=== PATIENT | male | born 1995 | race Caucasian/White ===

== ENCOUNTER 2017-02-10 18:06 | Emergency (ER) | payer OTHER ==
[2017-02-10 18:13] VITALS: BP 136/68; PULSE 94; RESP 20; TEMP 98.1
--- NOTE | 2017-02-10 18:53 | ED ---
Wound/Laceration HPI - General Chief Complaint: Wound/Laceration Stated Complaint: laceration left thumb Time Seen by Provider: 02/10/17 18:26 Source: patient, RN notes reviewed, old records reviewed Mode of arrival: ambulatory Limitations: no limitations - History of Present Illness Initial Comments: This is a 21-year-old male chief complaint laceration over his right thumb. Patient ports that he was cutting potatoes for his dinner place his thumb on a knife. Patient reports that his tetanus is up-to-date. He states that he has full range of motion. Patient reports tetanus is up to date. - Related Data Home Medications Medication Instructions Recorded Confirmed No Known Home Medications [No 02/10/17 02/10/17 Known Home Medications] Allergies Allergy/AdvReac Type Severity Reaction Status Date / Time No Known Allergies Allergy Verified 02/10/17 18:36 Review of Systems ROS Statement: Those systems with pertinent positive or pertinent negative responses have been documented in the HPI. ROS Other: All systems not noted in ROS Statement are negative. 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 migraine CARRILLO History of Any Multi-Drug Resistant Organisms: MRSA Date of last positivie culture/infection: 2011 MDRO Source:: BASE TAILBONE Additional Past Surgical History / Comment(s): REPAIR DOG BITES X2 - FACE, THEN RT EYE. Incision and drianage of MRSA abcess on coccyx Past Anesthesia/Blood Transfusion Reactions: No Reported Reaction Past Psychological History: ADD/ADHD, Bipolar Additional Psychological History / Comment(s): [place] refused Smoking Status: Current every day smoker Past Alcohol Use History: Rare Past Drug Use History: None Reported - Past Family History Mother Family Medical History: Asthma, COPD, Diabetes Mellitus, Eye Disorder, Hyperlipidemia, Hypertension, Osteoarthritis (OA) Additional Family Medical History / Comment(s): neuropathy Father Family Medical History: GERD/Reflux, Hyperlipidemia, Hypertension, Osteoarthritis (OA) Additional Family Medical History / Comment(s): hepatits C General Exam - General Exam Comments Initial Comments: Well appearing 21 year old male, no distress. Limitations: no limitations General appearance: alert, in no apparent distress Head exam: Present: atraumatic, normocephalic, normal inspection Eye exam: Present: normal appearance, PERRL, EOMI. Absent: scleral icterus, conjunctival injection, periorbital swelling ENT exam: Present: normal exam, mucous membranes moist Neck exam: Present: normal inspection. Absent: tenderness, meningismus, lymphadenopathy Respiratory exam: Present: normal lung sounds bilaterally. Absent: respiratory distress, wheezes, rales, rhonchi, stridor Cardiovascular Exam: Present: regular rate, normal rhythm, normal heart sounds. Absent: systolic murmur, diastolic murmur, rubs, gallop, clicks GI/Abdominal exam: Present: soft, normal bowel sounds. Absent: distended, tenderness, guarding, rebound, rigid Extremities exam: Present: normal inspection, full ROM, normal capillary refill. Absent: tenderness, pedal edema, joint swelling, calf tenderness Right Forearm Wrist exam: Present: normal inspection, full ROM Hand Wrist exam: Present: normal inspection, full ROM Hand L/R Front: 1 - laceration (2 cm laceration) Neuro motor exam: Present: wrist extension intact, thumb opposition intact, thumb IP flexion intact, thumb adduction intact, fingers 2-5 abduction intact Vascular: Present: normal capillary refill Back exam: Present: normal inspection Neurological exam: Present: alert, oriented X3, CN II-XII intact Psychiatric exam: Present: normal affect, normal mood Skin exam: Present: warm, dry, intact, normal color. Absent: rash Course Vital Signs 02/10/17 18:11 Temperature 98.1 F Pulse Rate 94 Respiratory 20 Rate Blood Pressure 136/68 O2 Sat by Pulse 98 Oximetry Medical Decision Making - Medical Decision Making Patient is a 21 year old male with laceration over right thumb. Laceration is superficial, and as I attempted to do sutures, patient refused and did not want the injection. Patient given dermabond over the wound. Discussed watching for infection, and return if this occurs. Patient understands treatment plan and will comply. Disposition Clinical Impression: Thumb laceration Disposition: HOME SELF-CARE Condition: Good Instructions: Laceration (ED), Skin Adhesive Care (ED) Additional Instructions: Do not remove at the skin glue. Allow the skin glue to fall off on its own. Monitor for any signs of infection. Return to emergency department if any redness swelling or drainage occurs around the site. Return to emergency department if any Signs or symptoms occur. Referrals: Eliazar Burton MD [Primary Care Provider] - 1-2 days Time of Disposition: 18:52
[2017-02-10] MEDS ORDERED: TOPICAL SKIN ADHESIVE 1 EACH AMP TOPICAL ONE (18:58)
== END 2017-02-10 19:12 | disposition home or self-care (01) ==
LOC: EC 18:06
DX: S61.011A Laceration without foreign body of right thumb without damage to nail, initial encounter (principal); F17.200 Nicotine dependence, unspecified, uncomplicated; W26.0XXA Contact with knife, initial encounter; Y92.009 Unspecified place in unspecified non-institutional (private) residence as the place of occurrence of the external cause
CPT/HCPCS: 12001; 99283

== ENCOUNTER 2017-06-02 10:59 | Emergency (ER) | payer OTHER ==
[2017-06-02 11:04] VITALS: RESP 20
[2017-06-02] MEDS ORDERED: ONDANSETRON 4 MG/2 ML VIAL IVP STA (11:23)
[2017-06-02] MEDS ORDERED: SODIUM CHLORIDE 0.9% 1,000 ML IV STA ×2 (11:23)
[2017-06-02] MEDS ORDERED: ESOMEPRAZOLE 20 MG in SODIUM CHLORIDE 0.9% 50 ML IVPB STA (11:26)
[2017-06-02] MEDS ORDERED: ACETAMINOPHEN IV (For NPO) 1,000 MG in SALINE 100 100ML.BAG IVPB STA (11:26)
[2017-06-02 11:54] LABS: Basophils % (A) 0 %; CHCM 34.3; Eosinophils # (A) 0.1 k/uL (0-0.7); Eosinophils % (A) 2 %; HDW 2.49; HGB 15.9 gm/dL (13.0-17.5); Luc # (Auto) 0.11; Luc % (Auto) 2; Lymphocytes # (A) 1.2 k/uL (1.0-4.8); Lymphocytes % (A) 24 %; MCH 30.3 pg (25.0-35.0); MCHC 34.5 g/dL (31.0-37.0); MCV 87.8 fL (80.0-100.0); Monocytes # (A) 0.2 k/uL (0-1.0); Monocytes % (A) 5 %; Neutrophils # (A) 3.3 k/uL (1.3-7.7); Neutrophils % (A) 67 %; RBC 5.24 m/uL (4.30-5.90); RDW 13.6 % (11.5-15.5); WBC (Perox) 4.66
--- NOTE | 2017-06-02 11:54 | ED ---
General Adult HPI - General Chief complaint: Abdominal Pain Stated complaint: DIZZINESS, BLACK STOOL, ABDOMINAL PAIN Time Seen by Provider: 06/02/17 11:13 Source: patient, RN notes reviewed Mode of arrival: ambulatory Limitations: no limitations - History of Present Illness Initial comments: Patient 21-year-old male who presents emergency room today with a chief complaint of symptoms of nausea vomiting diarrhea times one day. Patient does admit that symptoms started yesterday. States he had several bouts of diarrhea and vomiting. States that he did take some Pepto-Bismol. States he had a formed hard bowel movement this morning. States it was a dark color. Patient does admit that he's felt weaker. Patient does admit to abdominal pain male of his abdomen. He states felt lightheaded. Patient denies any other complaints currently. Patient denies any recent fever, chills, shortness of breath, chest pain, back pain, numbness or tingling, dysuria or hematuria, constipation, headaches or visual changes, or any other complaints. - Related Data Home Medications Medication Instructions Recorded Confirmed Aspirin 325 mg PO DAILY PRN 06/02/17 06/02/17 Previous Rx's Medication Instructions Recorded Ondansetron Odt [Zofran ODT] 4 mg PO Q8HR PRN #20 tab 06/02/17 Allergies Allergy/AdvReac Type Severity Reaction Status Date / Time No Known Allergies Allergy Verified 06/02/17 11:36 Review of Systems ROS Statement: Those systems with pertinent positive or pertinent negative responses have been documented in the HPI. ROS Other: All systems not noted in ROS Statement are negative. 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 migraine CARRILLO History of Any Multi-Drug Resistant Organisms: MRSA Date of last positivie culture/infection: 2011 MDRO Source:: BASE TAILBONE Additional Past Surgical History / Comment(s): REPAIR DOG BITES X2 - FACE, THEN RT EYE. Incision and drianage of MRSA abcess on coccyx Past Anesthesia/Blood Transfusion Reactions: No Reported Reaction Past Psychological History: ADD/ADHD, Bipolar Smoking Status: Current every day smoker Past Alcohol Use History: Rare Past Drug Use History: None Reported - Past Family History Mother Family Medical History: Asthma, COPD, Diabetes Mellitus, Eye Disorder, Hyperlipidemia, Hypertension, Osteoarthritis (OA) Additional Family Medical History / Comment(s): neuropathy Father Family Medical History: GERD/Reflux, Hyperlipidemia, Hypertension, Osteoarthritis (OA) Additional Family Medical History / Comment(s): hepatits C General Exam - General Exam Comments Initial Comments: General: The patient is awake and alert, in no distress, and does not appear acutely ill. Eye: Pupils are equal, round and reactive to light, extra-ocular movements are intact. No nystagmus. There is normal conjunctiva bilaterally. No signs of icterus. Ears, nose, mouth and throat: There are moist mucous membranes and no oral lesions. Neck: The neck is supple, there is no tenderness or JVD. Cardiovascular: There is a regular rate and rhythm. No murmur, rub or gallop is appreciated. Respiratory: Lungs are clear to auscultation, respirations are non-labored, breath sounds are equal. No wheezes, stridor, rales, or rhonchi. Gastrointestinal: Soft, non-distended. Mild tenderness in both right and lower quadrants. There is no rebound or guarding present. No CVA tenderness. Bowel sounds are unremarkable. Musculoskeletal: Normal ROM, no tenderness. Strength 5/5. Sensation intact. Pulses equal bilaterally 2+. Neurological: A&O x 3. CN II-XII intact, There are no obvious motor or sensory deficits. Coordination appears grossly intact. Speech is normal. Skin: Skin is warm and dry and no rashes or lesions are noted. Psychiatric: Cooperative, appropriate mood & affect, normal judgment. Limitations: no limitations Course Vital Signs 06/02/17 06/02/17 11:00 11:43 Temperature 98.6 F 98.1 F Pulse Rate 89 80 Respiratory 20 Rate Blood Pressure 132/78 110/60 O2 Sat by Pulse 98 95 Oximetry Medical Decision Making - Medical Decision Making Patient reexamined at this time shows no signs of distress. He is that he is feeling better here in the emergency room. Patient's labs been reviewed. Was discussed with patient about doing rectal exam for guaiac test. Patient has declined. Patient does admit that he did take Pepto-Bismol. Does admit that he had a dark bowel movement this morning. Patient states feels comfortable being discharged home at this time states he will return if he notices any other dark bowel movements. Given nausea medication go home with. Advised to return for any other concerns. - Lab Data Result diagrams: 06/02/17 11:36 06/02/17 11:36 Lab Results 06/02/17 06/02/17 06/02/17 Range/Units 11:36 11:36 11:36 WBC 5.0 (3.8-10.6) k/uL RBC 5.24 (4.30-5.90) m/uL Hgb 15.9 (13.0-17.5) gm/dL Hct 46.0 (39.0-53.0) % MCV 87.8 (80.0-100.0) fL MCH 30.3 (25.0-35.0) pg MCHC 34.5 (31.0-37.0) g/dL RDW 13.6 (11.5-15.5) % Plt Count 239 (150-450) k/uL Neutrophils % 67 % Lymphocytes % 24 % Monocytes % 5 % Eosinophils % 2 % Basophils % 0 % Neutrophils # 3.3 (1.3-7.7) k/uL Lymphocytes # 1.2 (1.0-4.8) k/uL Monocytes # 0.2 (0-1.0) k/uL Eosinophils # 0.1 (0-0.7) k/uL Basophils # 0.0 (0-0.2) k/uL PT (9.0-12.0) sec INR (<1.2) APTT (22.0-30.0) sec Sodium 140 (137-145) mmol/L Potassium 3.8 (3.5-5.1) mmol/L Chloride 105 (98-107) mmol/L Carbon Dioxide 24 (22-30) mmol/L Anion Gap 11 mmol/L BUN 10 (9-20) mg/dL Creatinine 0.81 (0.66-1.25) mg/dL Est GFR (MDRD) Af Amer >60 (>60 ml/min/1.73 sqM) Est GFR (MDRD) Non-Af >60 (>60 ml/min/1.73 sqM) Glucose 86 (74-99) mg/dL Plasma Lactic Acid [place] 0.9 (0.7-2.0) mmol/L Calcium 8.9 (8.4-10.2) mg/dL Total Bilirubin 0.7 (0.2-1.3) mg/dL AST 29 (17-59) U/L ALT 46 (21-72) U/L Alkaline Phosphatase 80 (38-126) U/L Total Protein 7.3 (6.3-8.2) g/dL Albumin 4.1 (3.5-5.0) g/dL Amylase <30 L (30-110) U/L Lipase 60 (23-300) U/L Urine Color Urine Appearance (Clear) Urine pH (5.0-8.0) Ur Specific [place] (1.001-1.035) Urine Protein (Negative) Urine Glucose (UA) (Negative) Urine Ketones (Negative) Urine Blood (Negative) Urine Nitrite (Negative) Urine Bilirubin (Negative) Urine Urobilinogen (<2.0) mg/dL Ur Leukocyte Esterase (Negative) Urine RBC (0-5) /hpf Urine WBC (0-5) /hpf Ur Squamous Epith Cells (0-4) /hpf Urine Bacteria (None) /hpf Urine Mucus (None) /hpf 06/02/17 06/02/17 Range/Units 11:36 12:10 WBC (3.8-10.6) k/uL RBC (4.30-5.90) m/uL Hgb (13.0-17.5) gm/dL Hct (39.0-53.0) % MCV (80.0-100.0) fL MCH (25.0-35.0) pg MCHC (31.0-37.0) g/dL RDW (11.5-15.5) % Plt Count (150-450) k/uL Neutrophils % % Lymphocytes % % Monocytes % % Eosinophils % % Basophils % % Neutrophils # (1.3-7.7) k/uL Lymphocytes # (1.0-4.8) k/uL Monocytes # (0-1.0) k/uL Eosinophils # (0-0.7) k/uL Basophils # (0-0.2) k/uL PT 10.7 (9.0-12.0) sec INR 1.1 (<1.2) APTT 29.3 (22.0-30.0) sec Sodium (137-145) mmol/L Potassium (3.5-5.1) mmol/L Chloride (98-107) mmol/L Carbon Dioxide (22-30) mmol/L Anion Gap mmol/L BUN (9-20) mg/dL Creatinine (0.66-1.25) mg/dL Est GFR (MDRD) Af Amer (>60 ml/min/1.73 sqM) Est GFR (MDRD) Non-Af (>60 ml/min/1.73 sqM) Glucose (74-99) mg/dL Plasma Lactic Acid [place] (0.7-2.0) mmol/L Calcium (8.4-10.2) mg/dL Total Bilirubin (0.2-1.3) mg/dL AST (17-59) U/L ALT (21-72) U/L Alkaline Phosphatase (38-126) U/L Total Protein (6.3-8.2) g/dL Albumin (3.5-5.0) g/dL Amylase (30-110) U/L Lipase (23-300) U/L Urine Color Yellow Urine Appearance Clear (Clear) Urine pH 6.0 (5.0-8.0) Ur Specific [place] 1.032 (1.001-1.035) Urine Protein 1+ H (Negative) Urine Glucose (UA) Negative (Negative) Urine Ketones 1+ H (Negative) Urine Blood Negative (Negative) Urine Nitrite Negative (Negative) Urine Bilirubin 1+ H (Negative) Urine Urobilinogen 3.0 (<2.0) mg/dL Ur Leukocyte Esterase Negative (Negative) Urine RBC 3 (0-5) /hpf Urine WBC 2 (0-5) /hpf Ur Squamous Epith Cells <1 (0-4) /hpf Urine Bacteria Rare H (None) /hpf Urine Mucus Few H (None) /hpf Disposition Clinical Impression: Nausea vomiting and diarrhea Disposition: HOME SELF-CARE Condition: Good Instructions: Acute Nausea and Vomiting (ED) Additional Instructions: Please use medication as discussed. Please follow-up with family doctor in the next 2 days of symptoms have not improved. Please return to emergency room if the symptoms increase or worsen or for any other concerns. Prescriptions: Ondansetron Odt [Zofran ODT] 4 mg PO Q8HR PRN #20 tab PRN Reason: Nausea Referrals: Eliazar Burton MD [Primary Care Provider] - 1-2 days Time of Disposition: 12:44
[2017-06-02 12:02] LABS: ALT 46 U/L (21-72); AST 29 U/L (17-59); Alkaline Phosphatase 80 U/L (38-126); Amylase <30 U/L (30-110); Anion Gap 11 mmol/L; Blood Urea Nitrogen 10 mg/dL (9-20); Calcium 8.9 mg/dL (8.4-10.2); Carbon Dioxide 24 mmol/L (22-30); Chloride 105 mmol/L (98-107); Glucose 86 mg/dL (74-99); Non-African American GFR(MDRD) >60 (>60 ml/min/1.73 sqM); Potassium 3.8 mmol/L (3.5-5.1); Sodium 140 mmol/L (137-145); Total Bilirubin 0.7 mg/dL (0.2-1.3); Total Protein 7.3 g/dL (6.3-8.2)
[2017-06-02 12:11] LABS: INR 1.1 (<1.2)
[2017-06-02 12:12] LABS: Partial Thromboplastin Time 29.3 sec (22.0-30.0); Prothrombin Time 10.7 sec (9.0-12.0)
[2017-06-02 12:30] LABS: Appearance,Urine Clear (Clear); Bacteria,Urine Rare /hpf; Bilirubin,Urine 1+ (Negative); Glucose,Urine (UA) Negative (Negative); Ketones,Urine 1+ (Negative); Leukocyte Esterase,Urine Negative (Negative); Mucus,Urine Few /hpf; Nitrite,Urine Negative (Negative); Particle Count 8218; Protein,Urine 1+ (Negative); RBC,Urine 3 /hpf (0-5); Specific Gravity,Urine 1.032 (1.001-1.035); Squamous Epithelial Cell,Urine <1 /hpf (0-4); UA Billing (MACRO vs. MICRO) MICRO; WBC,Urine 2 /hpf (0-5)
[2017-06-02 13:33] VITALS: BP 104/63; PULSE 75; TEMP 98.4
== END 2017-06-02 13:38 | disposition home or self-care (01) ==
LOC: EC 10:59
DX: R11.2 Nausea with vomiting, unspecified (principal); R19.7 Diarrhea, unspecified; R10.31 Right lower quadrant pain; R10.32 Left lower quadrant pain; F17.200 Nicotine dependence, unspecified, uncomplicated
CPT/HCPCS: 36415; 80053; 82150; 83605; 83690; 85025; 85610; 85730; 81001; 99284; 96365; 96375 ×2; 96361; J2405; J0131

== ENCOUNTER 2018-06-17 12:24 | Emergency (ER) | payer OTHER ==
[2018-06-17 12:57] VITALS: BP 120/85; PULSE 78; RESP 18; TEMP 98
[2018-06-17] MEDS ORDERED: traMADol 50 MG STARTER PACK 3 TAB BTL PO STA (13:11)
[2018-06-17] MEDS ORDERED: AMOXICILLIN 500MG STARTER PACK 3 CAP BTL PO STA (13:13)
--- NOTE | 2018-06-17 13:15 | ED ---
ENT HPI - General Chief complaint: ENT Stated complaint: ear pain Time Seen by Provider: 06/17/18 12:59 Source: patient, RN notes reviewed, old records reviewed Mode of arrival: ambulatory Limitations: no limitations - History of Present Illness Initial comments: 22-year-old male presents emergency department today with chief complaint left ear pain. He reports that he's had earwax follow-up for the past 3 months. He reports he started having the pain today. Patient states that he's had no fevers or chills. He reports pain with range of motion of the jaw. Patient states that he he has a appointment scheduled in 2 weeks for removal of the wax.Patient denies any recent fever, chills, shortness of breath, chest pain, back pain, abdominal pain, nausea vomiting, numbness or tingling, dysuria or hematuria, constipation or diarrhea, headaches or visual changes, or any other current symptoms - Related Data Home Medications Medication Instructions Recorded Confirmed buPROPion HCL [Wellbutrin XL] 150 mg PO DAILY 06/17/18 06/17/18 Previous Rx's Medication Instructions Recorded Amoxic-Pot Clav 875-125Mg 1 tab PO Q12HR #20 tablet 06/17/18 [Augmentin 875-125] Ciprofloxacin Ophth Soln [Cipro 1 drops LEFT EYE Q4HR #1 bottle 06/17/18 Ophth Soln] Allergies Allergy/AdvReac Type Severity Reaction Status Date / Time No Known Allergies Allergy Verified 06/17/18 12:56 Review of Systems ROS Statement: Those systems with pertinent positive or pertinent negative responses have been documented in the HPI. ROS Other: All systems not noted in ROS Statement are negative. 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 migraine CARRILLO History of Any Multi-Drug Resistant Organisms: MRSA Date of last positivie culture/infection: 2013 MDRO Source:: BASE TAILBONE Additional Past Surgical History / Comment(s): REPAIR DOG BITES X2 - FACE, THEN RT EYE. Incision and drianage of MRSA abcess on coccyx Past Anesthesia/Blood Transfusion Reactions: No Reported Reaction Past Psychological History: ADD/ADHD, Bipolar Smoking Status: Current every day smoker Past Alcohol Use History: Rare Past Drug Use History: None Reported - Past Family History Mother Family Medical History: Asthma, COPD, Diabetes Mellitus, Eye Disorder, Hyperlipidemia, Hypertension, Osteoarthritis (OA) Additional Family Medical History / Comment(s): neuropathy Father Family Medical History: GERD/Reflux, Hyperlipidemia, Hypertension, Osteoarthritis (OA) Additional Family Medical History / Comment(s): hepatits C General Exam - General Exam Comments Initial Comments: 22-year-old male. Alert and oriented. No acute distress. Limitations: no limitations General appearance: alert, in no apparent distress Head exam: Present: atraumatic, normocephalic, normal inspection Eye exam: Present: normal appearance, PERRL, EOMI. Absent: scleral icterus, conjunctival injection, periorbital swelling ENT exam: Present: normal exam, normal oropharynx, mucous membranes moist, other (Patient has erythematous left ear canal. Unable to see TM due to cerumen impaction. Patient is very tender to touch. Would not allow me to clean the cerumen impaction.) Neck exam: Present: normal inspection. Absent: tenderness, meningismus, lymphadenopathy Respiratory exam: Present: normal lung sounds bilaterally. Absent: respiratory distress, wheezes, rales, rhonchi, stridor Cardiovascular Exam: Present: regular rate, normal rhythm, normal heart sounds. Absent: systolic murmur, diastolic murmur, rubs, gallop, clicks GI/Abdominal exam: Present: soft, normal bowel sounds. Absent: distended, tenderness, guarding, rebound, rigid Extremities exam: Present: normal inspection, full ROM, normal capillary refill. Absent: tenderness, pedal edema, joint swelling, calf tenderness Back exam: Present: normal inspection Neurological exam: Present: alert, oriented X3, CN II-XII intact Psychiatric exam: Present: normal affect, normal mood Skin exam: Present: warm, dry, intact, normal color. Absent: rash Course Vital Signs 06/17/18 12:54 Temperature 98.0 F Pulse Rate 78 Respiratory 18 Rate Blood Pressure 120/85 O2 Sat by Pulse 99 Oximetry Medical Decision Making - Medical Decision Making this is a 22-year-old male presents emergency department today with left ear pain. Onset today. He does have clogged ears with ear wax in the past 3 months. He has a appointment scheduled 2 weeks of the Wehr is removed from PCP. Patient is very tender to palpation over the tragus and here. He will not allow me to remove the cerumen at this time due to pain. He says Motrin Tylenol for pain. Again Patient one Ultram in the emergency department. Patient will be started on antibiotic drops for likely otitis externa with inflammation around the ear canal as well as Augmentin. Discussed PCP follow- up. All questions answered return parameters were discussed. Disposition Clinical Impression: Otitis externa, left, Left ear pain Disposition: HOME SELF-CARE Condition: Good Instructions: Earache (ED) Additional Instructions: Patient is to use antibiotic drops and other medications prescribed. Motrin and tylenol for pain. Recommended also using a decongestant medications Claritin-D. Return to emergency department if any alarming signs or symptoms occur. Prescriptions: Amoxic-Pot Clav 875-125Mg [Augmentin 875-125] 1 tab PO Q12HR #20 tablet Ciprofloxacin Ophth Soln [Cipro Ophth Soln] 1 drops LEFT EYE Q4HR #1 bottle Is patient prescribed a controlled substance at d/c from ED?: No Referrals: Eliazar Burton MD [Primary Care Provider] - 1-2 days Time of Disposition: 13:12
== END 2018-06-17 13:57 | disposition home or self-care (01) ==
LOC: EC 12:24
DX: H60.92 Unspecified otitis externa, left ear (principal); H61.22 Impacted cerumen, left ear; F31.9 Bipolar disorder, unspecified; F17.200 Nicotine dependence, unspecified, uncomplicated; Z79.899 Other long term (current) drug therapy; Z86.14 Personal history of Methicillin resistant Staphylococcus aureus infection
CPT/HCPCS: 99283

== ENCOUNTER 2019-02-15 17:14 | Emergency (ER) | payer OTHER ==
[2019-02-15] MEDS ORDERED: MORPHINE SULFATE 4 MG/ML SYRINGE IV STA (17:40)
[2019-02-15] MEDS ORDERED: SODIUM CHLORIDE 0.9% 2,000 ML IV STA (17:40)
[2019-02-15] MEDS ORDERED: ONDANSETRON 4 MG/2 ML VIAL IVP STA (17:40)
[2019-02-15] MEDS ORDERED: IOPAMIDOL-300 CONTRAST 30 ML VIAL (ORAL USE) PO PRN (17:40)
[2019-02-15] MEDS ORDERED: FAMOTIDINE 20 MG/2 ML VIAL IV STA (17:47)
--- NOTE | 2019-02-15 17:50 | ED ---
General Adult HPI - General Chief complaint: Nausea/Vomiting/Diarrhea Stated complaint: NVD Time Seen by Provider: 02/15/19 17:23 Source: patient, EMS, RN notes reviewed Mode of arrival: wheelchair Limitations: no limitations - History of Present Illness Initial comments: Patient is a pleasant 23-year-old male presenting to the emergency Department with nausea vomiting diarrhea. Onset of symptoms was around 6 this morning. Patient has vomited around 6 times and has had approximately 12 episodes of diarrhea. Patient states he is still nauseated however has not vomiting. Patient feels he has nothing left to vomit. Patient did not feel like he had a fever. Patient does have some fullness of his abdomen, more so left lower. No history of similar symptoms previously. - Related Data Home Medications Medication Instructions Recorded Confirmed Acetaminophen Tab [Tylenol Tab] 650 mg PO Q6H PRN 02/15/19 02/15/19 Previous Rx's Medication Instructions Recorded Ondansetron Odt [Zofran Odt] 4 mg PO Q8HR PRN #10 tab 02/15/19 Allergies Allergy/AdvReac Type Severity Reaction Status Date / Time No Known Allergies Allergy Verified 02/15/19 17:38 Review of Systems ROS Statement: Those systems with pertinent positive or pertinent negative responses have been documented in the HPI. ROS Other: All systems not noted in ROS Statement are negative. 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 migraine CARRILLO History of Any Multi-Drug Resistant Organisms: MRSA Date of last positivie culture/infection: 2013 MDRO Source:: BASE TAILBONE Additional Past Surgical History / Comment(s): REPAIR DOG BITES X2 - FACE, THEN RT EYE. Incision and drianage of MRSA abcess on coccyx Past Anesthesia/Blood Transfusion Reactions: No Reported Reaction Past Psychological History: ADD/ADHD, Bipolar Smoking Status: Current every day smoker Past Alcohol Use History: Rare Past Drug Use History: None Reported - Past Family History Mother Family Medical History: Asthma, COPD, Diabetes Mellitus, Eye Disorder, Hyperlipidemia, Hypertension, Osteoarthritis (OA) Additional Family Medical History / Comment(s): neuropathy Father Family Medical History: GERD/Reflux, Hyperlipidemia, Hypertension, Osteoarthritis (OA) Additional Family Medical History / Comment(s): hepatits C General Exam Limitations: no limitations General appearance: alert, in no apparent distress Head exam: Present: atraumatic Eye exam: Present: normal appearance, PERRL ENT exam: Present: normal oropharynx Neck exam: Present: normal inspection Respiratory exam: Present: normal lung sounds bilaterally Cardiovascular Exam: Present: regular rate, normal rhythm Expanded Peripheral pulses: 2+: Dorsalis Pedis (R), Dorsalis Pedis (L) GI/Abdominal exam: Present: soft, tenderness (Mild to moderate left lower quadrant tenderness), normal bowel sounds. Absent: distended, guarding, pulsatile mass Extremities exam: Present: normal inspection. Absent: pedal edema, calf tenderness Neurological exam: Present: alert Psychiatric exam: Present: normal affect, normal mood Skin exam: Present: normal color Course Vital Signs 02/15/19 02/15/19 02/15/19 17:25 18:12 18:23 Temperature 102.1 F H 100.6 F H Pulse Rate 115 H 106 H 108 H Respiratory 18 24 Rate Blood Pressure 132/71 115/74 116/73 O2 Sat by Pulse 97 98 Oximetry 02/15/19 19:33 Temperature 100.6 F H Pulse Rate 112 H Respiratory 18 Rate Blood Pressure 120/88 O2 Sat by Pulse 100 Oximetry Medical Decision Making - Medical Decision Making Patient reevaluated and is feeling better. Patient and family updated on results and need for follow-up. - Lab Data Result diagrams: 02/15/19 18:15 02/15/19 18:15 Lab Results 02/15/19 02/15/19 02/15/19 Range/Units 18:15 18:15 18:15 WBC 10.0 (3.8-10.6) k/uL RBC 5.26 (4.30-5.90) m/uL Hgb 15.4 (13.0-17.5) gm/dL Hct 47.2 (39.0-53.0) % MCV 89.8 (80.0-100.0) fL MCH 29.2 (25.0-35.0) pg MCHC 32.5 (31.0-37.0) g/dL RDW 13.9 (11.5-15.5) % Plt Count 218 (150-450) k/uL Neutrophils % 90 % Lymphocytes % 4 % Monocytes % 4 % Eosinophils % 1 % Basophils % 0 % Neutrophils # 9.0 H (1.3-7.7) k/uL Lymphocytes # 0.4 L (1.0-4.8) k/uL Monocytes # 0.4 (0-1.0) k/uL Eosinophils # 0.1 (0-0.7) k/uL Basophils # 0.0 (0-0.2) k/uL PT 10.2 (9.0-12.0) sec INR 0.9 (<1.2) APTT 28.8 (22.0-30.0) sec Sodium 138 (137-145) mmol/L Potassium 4.2 (3.5-5.1) mmol/L Chloride 104 (98-107) mmol/L Carbon Dioxide 22 (22-30) mmol/L Anion Gap 12 mmol/L BUN 11 (9-20) mg/dL Creatinine 0.73 (0.66-1.25) mg/dL Est GFR (CKD-EPI)AfAm >90 (>60 ml/min/1.73 sqM) Est GFR (CKD-EPI)NonAf >90 (>60 ml/min/1.73 sqM) Glucose 97 (74-99) mg/dL Calcium 8.9 (8.4-10.2) mg/dL Total Bilirubin 1.1 (0.2-1.3) mg/dL AST 19 (17-59) U/L ALT 33 (21-72) U/L Alkaline Phosphatase 68 (38-126) U/L Total Protein 6.7 (6.3-8.2) g/dL Albumin 4.0 (3.5-5.0) g/dL Amylase 37 (30-110) U/L Lipase 53 (23-300) U/L Urine Color Urine Appearance (Clear) Urine pH (5.0-8.0) Ur Specific [place] (1.001-1.035) Urine Protein (Negative) Urine Glucose (UA) (Negative) Urine Ketones (Negative) Urine Blood (Negative) Urine Nitrite (Negative) Urine Bilirubin (Negative) Urine Urobilinogen (<2.0) mg/dL Ur Leukocyte Esterase (Negative) Influenza Type A RNA (Not Detectd) Influenza Type B (PCR) (Not Detectd) 02/15/19 02/15/19 Range/Units 18:15 18:15 WBC (3.8-10.6) k/uL RBC (4.30-5.90) m/uL Hgb (13.0-17.5) gm/dL Hct (39.0-53.0) % MCV (80.0-100.0) fL MCH (25.0-35.0) pg MCHC (31.0-37.0) g/dL RDW (11.5-15.5) % Plt Count (150-450) k/uL Neutrophils % % Lymphocytes % % Monocytes % % Eosinophils % % Basophils % % Neutrophils # (1.3-7.7) k/uL Lymphocytes # (1.0-4.8) k/uL Monocytes # (0-1.0) k/uL Eosinophils # (0-0.7) k/uL Basophils # (0-0.2) k/uL PT (9.0-12.0) sec INR (<1.2) APTT (22.0-30.0) sec Sodium (137-145) mmol/L Potassium (3.5-5.1) mmol/L Chloride (98-107) mmol/L Carbon Dioxide (22-30) mmol/L Anion Gap mmol/L BUN (9-20) mg/dL Creatinine (0.66-1.25) mg/dL Est GFR (CKD-EPI)AfAm (>60 ml/min/1.73 sqM) Est GFR (CKD-EPI)NonAf (>60 ml/min/1.73 sqM) Glucose (74-99) mg/dL Calcium (8.4-10.2) mg/dL Total Bilirubin (0.2-1.3) mg/dL AST (17-59) U/L ALT (21-72) U/L Alkaline Phosphatase (38-126) U/L Total Protein (6.3-8.2) g/dL Albumin (3.5-5.0) g/dL Amylase (30-110) U/L Lipase (23-300) U/L Urine Color Yellow Urine Appearance Clear (Clear) Urine pH 7.5 (5.0-8.0) Ur Specific [place] 1.025 (1.001-1.035) Urine Protein Negative (Negative) Urine Glucose (UA) Negative (Negative) Urine Ketones Trace H (Negative) Urine Blood Negative (Negative) Urine Nitrite Negative (Negative) Urine Bilirubin Negative (Negative) Urine Urobilinogen <2.0 (<2.0) mg/dL Ur Leukocyte Esterase Negative (Negative) Influenza Type A RNA Not Detected (Not Detectd) Influenza Type B (PCR) Not Detected (Not Detectd) - Radiology Data Radiology results: report reviewed (Computed tomography scan of the abdomen pelvis shows no acute process) Disposition Clinical Impression: Vomiting, Diarrhea Disposition: HOME SELF-CARE Condition: Stable Instructions (If sedation given, give patient instructions): Acute Nausea and Vomiting (ED), Acute Diarrhea (ED) Additional Instructions: [id number] Imodium as directed as needed for diarrhea. Please follow-up with primary care physician in the next day or 2 for recheck. Return for u ncontrolled vomiting, worsening or change in symptoms, or other concerns. Prescriptions: Ondansetron Odt [Zofran Odt] 4 mg PO Q8HR PRN #10 tab PRN Reason: Nausea Is patient prescribed a controlled substance at d/c from ED?: No Referrals: Eliazar Burton MD [Primary Care Provider] - 1-2 days Time of Disposition: 19:43
[2019-02-15 18:19] VITALS: TEMP 100.6
[2019-02-15 18:35] LABS: Basophils % (A) 0 %; Eosinophils # (A) 0.1 k/uL (0-0.7); Eosinophils % (A) 1 %; HCT 47.2 % (39.0-53.0); HGB 15.4 gm/dL (13.0-17.5); Lymphocytes # (A) 0.4 k/uL (1.0-4.8); Lymphocytes % (A) 4 %; MCH 29.2 pg (25.0-35.0); MCHC 32.5 g/dL (31.0-37.0); MCV 89.8 fL (80.0-100.0); Mean Platelet Volume 7.4; Monocytes # (A) 0.4 k/uL (0-1.0); Monocytes % (A) 4 %; Neutrophils % (A) 90 %; Platelet Count 218 k/uL (150-450); RBC 5.26 m/uL (4.30-5.90); RDW 13.9 % (11.5-15.5)
[2019-02-15 18:37] LABS: Appearance,Urine Clear (Clear); Bilirubin,Urine Negative (Negative); Blood,Urine Negative (Negative); Color,Urine Yellow; Glucose,Urine (UA) Negative (Negative); Ketones,Urine Trace (Negative); Leukocyte Esterase,Urine Negative (Negative); Nitrite,Urine Negative (Negative); PH, Urine 7.5 (5.0-8.0); Protein,Urine Negative (Negative); Specific Gravity,Urine 1.025 (1.001-1.035); Urobilinogen,Urine <2.0 mg/dL (<2.0)
[2019-02-15 18:44] LABS: ALT 33 U/L (21-72); AST 19 U/L (17-59); Alkaline Phosphatase 68 U/L (38-126); Amylase 37 U/L (30-110); Anion Gap 12 mmol/L; Blood Urea Nitrogen 11 mg/dL (9-20); Calcium 8.9 mg/dL (8.4-10.2); Carbon Dioxide 22 mmol/L (22-30); Chloride 104 mmol/L (98-107); Glucose 97 mg/dL (74-99); Lipase 53 U/L (23-300); Potassium 4.2 mmol/L (3.5-5.1); Sodium 138 mmol/L (137-145); Total Bilirubin 1.1 mg/dL (0.2-1.3); Total Protein 6.7 g/dL (6.3-8.2)
[2019-02-15 18:48] LABS: INR 0.9 (<1.2); Partial Thromboplastin Time 28.8 sec (22.0-30.0); Prothrombin Time 10.2 sec (9.0-12.0)
[2019-02-15] MEDS ORDERED: ACETAMINOPHEN TAB 500 MG TAB PO STA (18:55)
--- NOTE | 2019-02-15 19:13 | CT ---
EXAMINATION TYPE: CT abdomen pelvis w con DATE OF EXAM: 02/15/2019 COMPARISON: 07/06/2016 HISTORY: Nausea, vomiting, diarrhea, and fever today. CT DLP: 1872.8 mGycm Automated exposure control for dose reduction was used. TECHNIQUE: Helical acquisition of images was performed from the lung bases through the pelvis. CONTRAST: Performed without Oral Contrast and with IV Contrast, patient injected with 100 mL of Isovue 300. FINDINGS: Lung bases are clear. There is no pleural effusion. Heart size is normal. There is no pericardial eff usion. There is some low attenuation in the liver suggestive of fatty infiltration. Spleen appears no rmal. Stomach appears normal. There is no pancreatic mass. Gallbladder appears normal. Bile ducts are not dilated. There is no adrenal mass. Kidneys show satisfactory contrast opacification. There is no hydronephrosi s. Ureters are not dilated. There is no retroperitoneal adenopathy. Bladder distends smoothly. There is no free fluid in the pelvis. There is no inguinal hernia. There is no mesenteric edema. The appendix appears normal. There is no evidence of a bowel obstructio n. There is no free air or ascites. Lumbar spine is intact. Bony pelvis is intact. IMPRESSION: FATTY INFILTRATION OF THE LIVER. NO DILATED DUCTS. NO SIGN OF ACUTE ABDOMEN AND PELVIS. NORMAL APPEND IX.
[2019-02-15 19:36] VITALS: BP 120/88; PULSE 112; RESP 18
== END 2019-02-15 20:03 | disposition home or self-care (01) ==
LOC: EC 17:14
DX: R11.2 Nausea with vomiting, unspecified (principal); R19.7 Diarrhea, unspecified; F17.200 Nicotine dependence, unspecified, uncomplicated; Z86.14 Personal history of Methicillin resistant Staphylococcus aureus infection; Z87.19 Personal history of other diseases of the digestive system; Z83.79 Family history of other diseases of the digestive system
CPT/HCPCS: 99285; 96374; 96375 ×2; 96361; 36415; 80053; 82150; 83690; 85025; 85610; 85730; 81003; 87502; 74177; J2270; J2405; Q9967

== ENCOUNTER 2019-05-21 17:58 | Emergency (ER) | payer OTHER ==
[2019-05-21 18:03] VITALS: BP 99/63; RESP 18; TEMP 97.9
--- NOTE | 2019-05-21 19:00 | ED ---
General Adult HPI - General Chief complaint: Skin/Abscess/Foreign Body Stated complaint: Abcess Time Seen by Provider: 05/21/19 18:04 Source: patient Mode of arrival: ambulatory Limitations: no limitations - History of Present Illness Initial comments: Patient is a 23-year-old male presenting to emergency Department with an abscess. Patient reports a chronic history of abscesses. Patient reports over the last few days he developed an abscess in the left abdominal fold that has begun draining since yesterday. Patient reports "yellowish white" discharge. Patient reports he attempted to squeeze is much fluid as possible. Patient reports placing a bandage over the incision site. Patient denies erythema or edema at the site of infection. Patient denies fever, nausea, vomiting. Patient denies taking medication to alleviate the symptoms. - Related Data Home Medications Medication Instructions Recorded Confirmed Acetaminophen Tab [Tylenol Tab] 650 mg PO Q6H PRN 02/15/19 02/15/19 Previous Rx's Medication Instructions Recorded Ondansetron Odt [Zofran Odt] 4 mg PO Q8HR PRN #10 tab 02/15/19 Cephalexin [Keflex] 500 mg PO Q6HR #40 cap 05/21/19 Sulfamethox-Tmp 800-160Mg [Bactrim 1 each PO Q12HR #20 tab 05/21/19 Ds] Allergies Allergy/AdvReac Type Severity Reaction Status Date / Time No Known Allergies Allergy Verified 02/15/19 17:38 Review of Systems ROS Statement: Those systems with pertinent positive or pertinent negative responses have been documented in the HPI. ROS Other: All systems not noted in ROS Statement are negative. 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 migraine CARRILLO History of Any Multi-Drug Resistant Organisms: MRSA Date of last positivie culture/infection: 2013 MDRO Source:: BASE TAILBONE Additional Past Surgical History / Comment(s): REPAIR DOG BITES X2 - FACE, THEN RT EYE. Incision and drianage of MRSA abcess on coccyx Past Anesthesia/Blood Transfusion Reactions: No Reported Reaction Past Psychological History: ADD/ADHD, Bipolar Smoking Status: Current every day smoker Past Alcohol Use History: Rare Past Drug Use History: None Reported - Past Family History Mother Family Medical History: Asthma, COPD, Diabetes Mellitus, Eye Disorder, Hyperlipidemia, Hypertension, Osteoarthritis (OA) Additional Family Medical History / Comment(s): neuropathy Father Family Medical History: GERD/Reflux, Hyperlipidemia, Hypertension, Osteoarthritis (OA) Additional Family Medical History / Comment(s): hepatits C General Exam Limitations: no limitations General appearance: alert, in no apparent distress Head exam: Present: atraumatic, normocephalic, normal inspection Eye exam: Present: normal appearance, PERRL, EOMI Pupils: Present: normal accommodation ENT exam: Present: normal exam, mucous membranes moist, normal external ear exam Neck exam: Present: normal inspection, full ROM Respiratory exam: Present: normal lung sounds bilaterally Cardiovascular Exam: Present: regular rate, normal rhythm, normal heart sounds Extremities exam: Present: normal inspection, full ROM, normal capillary refill Back exam: Present: normal inspection, full ROM Neurological exam: Present: alert, oriented X3 Psychiatric exam: Present: normal mood Skin exam: Present: warm, intact, normal color, rash (3 cm diameter draining abscess on the left abdominal fold. 2 cm diameter induration. No fluctuance.) Course Vital Signs 05/21/19 05/21/19 17:59 19:05 Temperature 97.9 F Pulse Rate 105 H 96 Respiratory 18 18 Rate Blood Pressure 99/63 O2 Sat by Pulse 97 98 Oximetry Medical Decision Making - Medical Decision Making Patient is a 23-year-old male presenting to emergency Department with an abscess. Based on history and physical examination the abscess is ready draining and no further incision and drainage is required. The lesion was not draining at the time of examination. Patient will be discharged with a 10 day course of Bactrim and Keflex. Strict return parameters were thoroughly discussed with patient who is understanding and agreeable. Case discussed with physician. Disposition Clinical Impression: Abscess Disposition: HOME SELF-CARE Condition: Stable Instructions (If sedation given, give patient instructions): Abscess (ED) Additional Instructions: Please take prescribed medication as directed. Please follow-up with primary care. Please return to emergency department symptoms worsen. Prescriptions: Sulfamethox-Tmp 800-160Mg [Bactrim Ds] 1 each PO Q12HR #20 tab Cephalexin [Keflex] 500 mg PO Q6HR #40 cap Is patient prescribed a controlled substance at d/c from ED?: No Referrals: Eliazar Burton MD [Primary Care Provider] - 1-2 days Time of Disposition: 19:00
[2019-05-21 19:06] VITALS: PULSE 96
== END 2019-05-21 19:06 | disposition home or self-care (01) ==
LOC: EC 17:58
DX: L02.211 Cutaneous abscess of abdominal wall (principal); F17.200 Nicotine dependence, unspecified, uncomplicated; Z86.14 Personal history of Methicillin resistant Staphylococcus aureus infection
CPT/HCPCS: 99282

== ENCOUNTER 2019-10-30 12:22 | Emergency (ER) | payer OTHER ==
[2019-10-30 12:30] VITALS: TEMP 97.8
--- NOTE | 2019-10-30 12:40 | ED ---
Lower Extremity Injury HPI - General Chief Complaint: Extremity Injury, Lower Stated Complaint: lt ankle injufy Time Seen by Provider: 10/30/19 12:33 Source: patient, RN notes reviewed, old records reviewed Mode of arrival: wheelchair Limitations: no limitations - History of Present Illness Initial Comments: This Patient is a 24-year-old male presents emergency department today with left ankle pain. Patient reports that he rolled his ankle while slipping on bubble wrap at work. He works at [employer]. Patient states that he has some pain over the lateral malleolus. He denies any knee pain. Denies any head or injury or any other injuries related to the accident. Patient states that he was able to bear weight but was limping. Patient reports he rolled his ankle a few weeks ago. - Related Data Home Medications Medication Instructions Recorded Confirmed Acetaminophen Tab [Tylenol Tab] 650 mg PO Q6H PRN 02/15/19 02/15/19 Previous Rx's Medication Instructions Recorded Ondansetron Odt [Zofran Odt] 4 mg PO Q8HR PRN #10 tab 02/15/19 Cephalexin [Keflex] 500 mg PO Q6HR #40 cap 05/21/19 Sulfamethox-Tmp 800-160Mg [Bactrim 1 each PO Q12HR #20 tab 05/21/19 Ds] Ibuprofen [Motrin] 600 mg PO Q8HR PRN #20 tab 10/30/19 Allergies Allergy/AdvReac Type Severity Reaction Status Date / Time No Known Allergies Allergy Verified 02/15/19 17:38 Review of Systems ROS Statement: Those systems with pertinent positive or pertinent negative responses have been documented in the HPI. ROS Other: All systems not noted in ROS Statement are negative. 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 migraine CARRILLO History of Any Multi-Drug Resistant Organisms: MRSA Date of last positivie culture/infection: 2013 MDRO Source:: BASE TAILBONE Additional Past Surgical History / Comment(s): REPAIR DOG BITES X2 - FACE, THEN RT EYE. Incision and drianage of MRSA abcess on coccyx Past Anesthesia/Blood Transfusion Reactions: No Reported Reaction Past Psychological History: ADD/ADHD, Bipolar Smoking Status: Current every day smoker Past Alcohol Use History: Rare Past Drug Use History: None Reported - Past Family History Mother Family Medical History: Asthma, COPD, Diabetes Mellitus, Eye Disorder, Hyperlipidemia, Hypertension, Osteoarthritis (OA) Additional Family Medical History / Comment(s): neuropathy Father Family Medical History: GERD/Reflux, Hyperlipidemia, Hypertension, Osteoarthritis (OA) Additional Family Medical History / Comment(s): hepatits C General Exam - General Exam Comments Initial Comments: 24-year-old male. Alert and oriented. No distress. Limitations: no limitations General appearance: alert Head exam: Present: atraumatic, normocephalic, normal inspection Eye exam: Present: normal appearance, PERRL, EOMI. Absent: scleral icterus, conjunctival injection, periorbital swelling ENT exam: Present: normal exam, mucous membranes moist Neck exam: Present: normal inspection. Absent: tenderness, meningismus, lymphadenopathy Respiratory exam: Present: normal lung sounds bilaterally. Absent: respiratory distress, wheezes, rales, rhonchi, stridor Cardiovascular Exam: Present: regular rate, normal rhythm, normal heart sounds. Absent: systolic murmur, diastolic murmur, rubs, gallop, clicks Left Lower Leg exam: Present: normal inspection, full ROM Ankle exam: Present: normal inspection, full ROM, tenderness (Patient has tenderness over the lateral malleolus and proximal fifth metatarsal. No bruising. No significant swelling at this time.) Neurovascular tendon exam: Present: no vascular compromise Gait: observed and normal Back exam: Present: normal inspection Neurological exam: Present: alert Psychiatric exam: Present: normal affect, normal mood Course Vital Signs 10/30/19 10/30/19 12:27 12:30 Temperature 97.8 F Pulse Rate 77 87 Respiratory 18 15 Rate Blood Pressure 119/81 123/65 O2 Sat by Pulse 96 100 Oximetry Medical Decision Making - Medical Decision Making 24-year-old male presents today with left ankle pain after he rolled it at work. He complains of some pain and tenderness over the lateral malleolus. The fifth metatarsal. At this time patient's ankle x-rays negative for any acute process. No fracture. Patient was given ankle air cast. Discussed Motrin Tylenol and RICE instructions. Discussed if he had persistent pain he can follow-up with orthopedics. Discussed return parameters. - Radiology Data Radiology results: report reviewed No acute fracture dislocation left ankle. Disposition Clinical Impression: Ankle sprain Disposition: HOME SELF-CARE Condition: Stable Instructions (If sedation given, give patient instructions): Ankle Sprain (ED) Additional Instructions: Is advised to rest, ice, and elevate. Patient can read Ed wrap and take anti- inflammatory medication for a period symptoms continue to persist follow-up with orthopedic. Prescriptions: Ibuprofen [Motrin] 600 mg PO Q8HR PRN #20 tab PRN Reason: Pain Is patient prescribed a controlled substance at d/c from ED?: No Referrals: Eliazar Burton MD [Primary Care Provider] - 1-2 days Allan Espinal MD [STAFF PHYSICIAN] - 1-2 days Time of Disposition: 13:07
[2019-10-30 12:41] VITALS: RESP 15
--- NOTE | 2019-10-30 12:49 | XR ---
EXAMINATION TYPE: XR ankle complete LT DATE OF EXAM: 10/30/2019 CLINICAL HISTORY: Rolling injury with pain TECHNIQUE: Frontal, lateral and oblique images of the left ankle are obtained. COMPARISON: None. FINDINGS: There is no acute fracture/dislocation evident in the left ankle. The ankle mortise appea rs within normal limits. The overlying soft tissue appears unremarkable. IMPRESSION: There is no acute fracture or dislocation in the left ankle.
[2019-10-30 13:24] VITALS: BP 121/61; PULSE 73
== END 2019-10-30 13:24 | disposition home or self-care (01) ==
LOC: EC 12:22
DX: S93.402A Sprain of unspecified ligament of left ankle, initial encounter (principal); F17.200 Nicotine dependence, unspecified, uncomplicated; Z86.14 Personal history of Methicillin resistant Staphylococcus aureus infection; W18.49XA Other slipping, tripping and stumbling without falling, initial encounter; Y93.89 Activity, other specified; Y92.69 Other specified industrial and construction area as the place of occurrence of the external cause; Y99.0 Civilian activity done for income or pay
CPT/HCPCS: 99284

== ENCOUNTER → 2019-11-05 | Outpatient (CLI) | payer OTHER ==
--- NOTE | 2019-11-05 15:06 | XR ---
EXAMINATION TYPE: XR ankle complete LT DATE OF EXAM: 11/05/2019 COMPARISON: 10/30/2019 HISTORY: Pain FINDINGS: Three views of the ankle demonstrate the ankle mortise to be intact and symmetric. The joint spaces are preserved. The osseous structures are intact. IMPRESSION: 1. No definite acute fracture or dislocation.
== END ==
LOC: RADXRMAIN 14:32
PROVIDERS: ATTEND Emergency Medicine
DX: S93.402A Sprain of unspecified ligament of left ankle, initial encounter (principal)

== ENCOUNTER 2020-01-24 21:07 | Emergency (ER) | payer OTHER ==
[2020-01-24] MEDS ORDERED: SODIUM CHLORIDE 0.9% 500 ML 500 ML IV STA (21:16)
[2020-01-24 22:01] LABS: ALT 41 U/L (4-49); AST 40 U/L (17-59); African American GFR (CKD) >90 (>60 ml/min/1.73 sqM); Albumin 4.6 g/dL (3.5-5.0); Alkaline Phosphatase 83 U/L (38-126); Anion Gap 9 mmol/L; Blood Urea Nitrogen 14 mg/dL (9-20); Calcium 9.2 mg/dL (8.4-10.2); Carbon Dioxide 21 mmol/L (22-30); Chloride 106 mmol/L (98-107); Glucose 92 mg/dL (74-99); Magnesium 2.1 mg/dL (1.6-2.3); Non-African American GFR(CKD) >90 (>60 ml/min/1.73 sqM); Sodium 136 mmol/L (137-145); Total Bilirubin 0.7 mg/dL (0.2-1.3)
[2020-01-24 22:18] LABS: Potassium 4.7 mmol/L (3.5-5.1)
[2020-01-24 22:37] LABS: Basophils # (A) 0.1 k/uL (0-0.2); Basophils % (A) 1 %; Eosinophils # (A) 0.2 k/uL (0-0.7); Eosinophils % (A) 2 %; HCT 45.6 % (39.0-53.0); HGB 15.2 gm/dL (13.0-17.5); Lymphocytes # (A) 2.3 k/uL (1.0-4.8); Lymphocytes % (A) 27 %; MCH 29.9 pg (25.0-35.0); MCHC 33.2 g/dL (31.0-37.0); Mean Platelet Volume 7.9; Monocytes # (A) 0.5 k/uL (0-1.0); Monocytes % (A) 6 %; Neutrophils # (A) 5.2 k/uL (1.3-7.7); Neutrophils % (A) 62 %; Platelet Count 260 k/uL (150-450); RBC 5.07 m/uL (4.30-5.90); RDW 13.5 % (11.5-15.5); WBC 8.3 k/uL (3.8-10.6)
--- NOTE | 2020-01-24 22:41 | ED ---
Abdominal Pain HPI - General Chief Complaint: Abdominal Pain Stated Complaint: Abd Pain,Diarrhea Time Seen by Provider: 01/24/20 21:15 Source: patient Mode of arrival: ambulatory Limitations: no limitations - History of Present Illness Initial Comments: Rock is a 24yo M with no significant PMH presents to ER today for evaluation of 2 weeks of crampy abdominal pain and diarrhea. Patient reports that over the past 2 weeks he has had episodes of loose stools which are preceded by approximately 30 minutes of abdominal cramping. Abdominal cramping resolves after having a bowel movement. Patient reports this happens approximately every 2 hours while awake. Patient reports decreased appetite but no vomiting. Patient states that early in the course he did notice some bright red blood upon wiping but that has resolved. Patient denies any recent travel, he denies any outdoor activities or suspicious food intake, denies any recent antibiotic use. Patient denies any associated fevers chills or change in bladder habits. He has no history of food ALLERGIES, irritable bowel or family history of inflammatory or irritable bowel syndrome. - Related Data Home Medications Medication Instructions Recorded Confirmed Acetaminophen Tab [Tylenol Tab] 650 mg PO Q6H PRN 02/15/19 02/15/19 Previous Rx's Medication Instructions Recorded Ondansetron Odt [Zofran Odt] 4 mg PO Q8HR PRN #10 tab 02/15/19 Cephalexin [Keflex] 500 mg PO Q6HR #40 cap 05/21/19 Sulfamethox-Tmp 800-160Mg [Bactrim 1 each PO Q12HR #20 tab 05/21/19 Ds] Ibuprofen [Motrin] 600 mg PO Q8HR PRN #20 tab 10/30/19 Dicyclomine [Bentyl] 10 mg PO QID #30 capsule 01/24/20 Allergies Allergy/AdvReac Type Severity Reaction Status Date / Time No Known Allergies Allergy Verified 02/15/19 17:38 Review of Systems ROS Statement: Those systems with pertinent positive or pertinent negative responses have been documented in the HPI. ROS Other: All systems not noted in ROS Statement are negative. 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 migraine CARRILLO History of Any Multi-Drug Resistant Organisms: MRSA Date of last positivie culture/infection: 2013 MDRO Source:: BASE TAILBONE Additional Past Surgical History / Comment(s): REPAIR DOG BITES X2 - FACE, THEN RT EYE. Incision and drianage of MRSA abcess on coccyx Past Anesthesia/Blood Transfusion Reactions: No Reported Reaction Past Psychological History: ADD/ADHD, Bipolar Smoking Status: Current every day smoker Past Alcohol Use History: Rare Past Drug Use History: None Reported - Past Family History Mother Family Medical History: Asthma, COPD, Diabetes Mellitus, Eye Disorder, Hyperlipidemia, Hypertension, Osteoarthritis (OA) Additional Family Medical History / Comment(s): neuropathy Father Family Medical History: GERD/Reflux, Hyperlipidemia, Hypertension, Osteoarthritis (OA) Additional Family Medical History / Comment(s): hepatits C General Exam - General Exam Comments Initial Comments: Physical Exam GENERAL: Patient is well-developed and well-nourished. Patient is nontoxic and well- hydrated and is in no distress. HENT: Normocephalic, Atraumatic. EYES: PERRL, EOMI PULMONARY: Unlabored respirations. No audible rales rhonchi or wheezing was noted. CARDIOVASCULAR: There is a regular rate and rhythm without any murmurs gallops or rubs. ABDOMEN: Soft and nontender with normal bowel sounds. No tenderness to palpation in all quadrants SKIN: Skin is clear with no lesions or rashes and otherwise unremarkable. : Deferred NEUROLOGIC: Patient is alert and oriented x3. Moving all extremities spontaneously MUSCULOSKELETAL: Normal extremities with adequate strength and full range of motion. No lower extremity swelling or edema. No calf tenderness. Patient has a left wrist in a cock-up splint due to pain with extension PSYCHIATRIC: Normal psychiatric evaluation. Limitations: no limitations Course Vital Signs 01/24/20 01/24/20 21:09 22:50 Temperature 98.5 F 98.3 F Pulse Rate 94 79 Respiratory 18 16 Rate Blood Pressure 122/82 122/76 O2 Sat by Pulse 98 98 Oximetry Medical Decision Making - Medical Decision Making The patient was seen and evaluated history is obtained from patient 24-year-old previously healthy male with 10 days of loose stools, crampy abdominal pain before the stools but otherwise feeling well eating and drinking appears well-hydrated no acute distress Labs were obtained and resulted with no acute skin abnormalities Patient has no risk factors for infectious diarrhea. Continued supportive care measures were discussed with the patient, patient will be prescribed Bentyl upon discharge for treatment of the crampy abdominal pain. Encouraged to continue oral rehydration therapy. Encouraged to keep a food diary to try to identify any foods that exacerbate or relieve the symptoms. Recommended follow-up with primary care and if he has persistence of symptoms discussion of possible stool studies for infectious diarrhea though he has no risk factors. All questions pertaining care were answered return parameters were discussed patient was discharged home in stable condition. - Lab Data Result diagrams: 01/24/20 21:25 01/24/20 21:25 Lab Results 01/24/20 01/24/20 Range/Units 21:25 21:25 WBC 8.3 (3.8-10.6) k/uL RBC 5.07 (4.30-5.90) m/uL Hgb 15.2 (13.0-17.5) gm/dL Hct 45.6 (39.0-53.0) % MCV 90.0 (80.0-100.0) fL MCH 29.9 (25.0-35.0) pg MCHC 33.2 (31.0-37.0) g/dL RDW 13.5 (11.5-15.5) % Plt Count 260 (150-450) k/uL Neutrophils % 62 % Lymphocytes % 27 % Monocytes % 6 % Eosinophils % 2 % Basophils % 1 % Neutrophils # 5.2 (1.3-7.7) k/uL Lymphocytes # 2.3 (1.0-4.8) k/uL Monocytes # 0.5 (0-1.0) k/uL Eosinophils # 0.2 (0-0.7) k/uL Basophils # 0.1 (0-0.2) k/uL Sodium 136 L (137-145) mmol/L Potassium 4.7 (3.5-5.1) mmol/L Chloride 106 (98-107) mmol/L Carbon Dioxide 21 L (22-30) mmol/L Anion Gap 9 mmol/L BUN 14 (9-20) mg/dL Creatinine 0.71 (0.66-1.25) mg/dL Est GFR (CKD-EPI)AfAm >90 (>60 ml/min/1.73 sqM) Est GFR (CKD-EPI)NonAf >90 (>60 ml/min/1.73 sqM) Glucose 92 (74-99) mg/dL Calcium 9.2 (8.4-10.2) mg/dL Magnesium 2.1 (1.6-2.3) mg/dL Total Bilirubin 0.7 (0.2-1.3) mg/dL AST 40 (17-59) U/L ALT 41 (4-49) U/L Alkaline Phosphatase 83 (38-126) U/L Total Protein 8.0 (6.3-8.2) g/dL Albumin 4.6 (3.5-5.0) g/dL Lipase 130 (23-300) U/L Disposition Clinical Impression: Diarrhea Disposition: HOME SELF-CARE Condition: Stable Instructions (If sedation given, give patient instructions): Acute Diarrhea (ED) Prescriptions: Dicyclomine [Bentyl] 10 mg PO QID #30 capsule Is patient prescribed a controlled substance at d/c from ED?: No Referrals: Eliazar Burton MD [Primary Care Provider] - 1-2 days
[2020-01-24 22:51] VITALS: BP 122/76; PULSE 79; RESP 16; TEMP 98.3
== END 2020-01-24 23:15 | disposition home or self-care (01) ==
LOC: EC 21:07
DX: R19.7 Diarrhea, unspecified (principal); R10.9 Unspecified abdominal pain; F17.200 Nicotine dependence, unspecified, uncomplicated
CPT/HCPCS: 36415; 80053; 83690; 83735; 85025; 96360; 99284

== ENCOUNTER → 2020-01-29 | Outpatient (CLI) | payer OTHER ==
--- NOTE | 2020-01-29 12:07 | CT ---
EXAMINATION TYPE: CT abdomen pelvis w con DATE OF EXAM: 01/29/2020 COMPARISON: CT abdomen and pelvis February 15, 2019 and older CTs HISTORY: Right sided pain with diarrhea for [address] DLP: 2539.4 mGycm, Automated Exposure Control for Dose Reduction was Utilized. CONTRAST: CT scan of the abdomen and pelvis is performed with oral and with IV Contrast, patient injected with 100 mL of Isovue 300. FINDINGS: LUNG BASES: No significant abnormality is appreciated. LIVER/GB: Liver remains isodense to hypodense relative to spleen suggesting mild diffuse fatty infilt ration. PANCREAS: No significant abnormality is seen. SPLEEN: No significant abnormality is seen. ADRENALS: No significant abnormality is seen. KIDNEYS: Symmetric cortical measuring uptake in excretion without hydronephrosis seen bilaterally. BOWEL: Oral contrast reaches level of distal transverse colon. No suspicious small or large bowel dil atation. Mild wall thickening sigmoid rectal colon. Findings could be the product of mild uncomplicat ed acute colitis versus products of poor distention. Incidental normal-appearing appendix redemonstra jm from base of cecum right upper pelvis. PROSTATE/SEMINAL VESICLES: Nonenlarged. Occasional pelvic phlebolith. LYMPH NODES: No greater than 1cm abdominal or pelvic lymph nodes are appreciated. OSSEOUS STRUCTURES: No significant abnormality is seen. OTHER: No significant additional abnormality is seen. IMPRESSION: 1. Perhaps mild distal uncomplicated acute colitis otherwise unremarkable study.
== END | disposition home or self-care (01) ==
LOC: RADCTMAIN 10:14
PROVIDERS: ATTEND Family Medicine
DX: R19.7 Diarrhea, unspecified (principal); R10.829 Rebound abdominal tenderness, unspecified site; R10.31 Right lower quadrant pain
CPT/HCPCS: 87329; 87328; 74177; Q9967

== ENCOUNTER 2020-03-06 19:12 | Emergency (ER) | payer OTHER ==
[2020-03-06 19:17] VITALS: BP 120/71; PULSE 97; RESP 18; TEMP 98
--- NOTE | 2020-03-06 20:00 | ED ---
General Adult HPI - General Chief complaint: Skin/Abscess/Foreign Body Stated complaint: Abcess Time Seen by Provider: 03/06/20 19:22 Source: patient Mode of arrival: ambulatory Limitations: no limitations - History of Present Illness Initial comments: 24 year-old male patient presents to the emergency department today for evaluation of an abscess to the left lower abdomen. Patient states for the last 2-3 days he has noticed the abscess increasing in size. Patient states he was evaluated at urgent care this morning. He did get antibiotic prescription but they did not want to perform an incision and drainage. Patient states this evening the wound started to spontaneously drain blood and pus. Patient states that he now has a hole to the area was concerned about this. He denies any fever or chills. States the area is painful and tender to touch. He does have a history of abscess with MRSA. Patient denies any recent rash, cough, shortness of breath, chest pain, abdominal pain, nausea, vomiting, diarrhea, constipation, back pain, numbness, tingling, dizziness, weakness, hematuria, dysuria, urinary urgency, urinary frequency, headache, visual changes, or any other complaints. - Related Data Home Medications Medication Instructions Recorded Confirmed Acetaminophen Tab [Tylenol Tab] 650 mg PO Q6H PRN 02/15/19 02/15/19 Previous Rx's Medication Instructions Recorded Ondansetron Odt [Zofran Odt] 4 mg PO Q8HR PRN #10 tab 02/15/19 Cephalexin [Keflex] 500 mg PO Q6HR #40 cap 05/21/19 Sulfamethox-Tmp 800-160Mg [Bactrim 1 each PO Q12HR #20 tab 05/21/19 Ds] Ibuprofen [Motrin] 600 mg PO Q8HR PRN #20 tab 10/30/19 Dicyclomine [Bentyl] 10 mg PO QID #30 capsule 01/24/20 Allergies Allergy/AdvReac Type Severity Reaction Status Date / Time No Known Allergies Allergy Verified 03/06/20 19:17 Review of Systems ROS Statement: Those systems with pertinent positive or pertinent negative responses have been documented in the HPI. ROS Other: All systems not noted in ROS Statement are negative. Past Medical History Past Medical History: GERD/Reflux, Skin Disorder Additional Past Medical History / Comment(s): migraine CARRILLO History of Any Multi-Drug Resistant Organisms: MRSA Date of last positivie culture/infection: 2017 MDRO Source:: BASE TAILBONE Additional Past Surgical History / Comment(s): REPAIR DOG BITES X2 - FACE, THEN RT EYE. Incision and drianage of MRSA abcess on coccyx Past Anesthesia/Blood Transfusion Reactions: No Reported Reaction Past Psychological History: ADD/ADHD, Bipolar Smoking Status: Current every day smoker Past Alcohol Use History: Rare Past Drug Use History: None Reported - Past Family History Mother Family Medical History: Asthma, COPD, Diabetes Mellitus, Eye Disorder, Hyperlipidemia, Hypertension, Osteoarthritis (OA) Additional Family Medical History / Comment(s): neuropathy Father Family Medical History: GERD/Reflux, Hyperlipidemia, Hypertension, Osteoarthritis (OA) Additional Family Medical History / Comment(s): hepatits C General Exam Limitations: no limitations General appearance: alert, in no apparent distress, other (This is a well- developed, well-nourished adult male patient in no acute distress. Vital signs upon presentation are temperature 98.0F, pulse 97, respirations 18, blood pressure 120/71, pulse ox 99% on room air.) Respiratory exam: Present: normal lung sounds bilaterally. Absent: respiratory distress, wheezes, rales, rhonchi, stridor Cardiovascular Exam: Present: regular rate, normal rhythm, normal heart sounds. Absent: systolic murmur, diastolic murmur, rubs, gallop, clicks GI/Abdominal exam: Present: soft, normal bowel sounds, other (There is a an open draining abscess noted to the left lower abdomen beneath the pannus. There is purulent drainage and mild surrounding erythema. ). Absent: distended, tenderness, guarding, rebound, rigid Neurological exam: Present: alert, oriented X3, CN II-XII intact Psychiatric exam: Present: normal affect, normal mood Skin exam: Present: warm, dry, intact, normal color. Absent: rash Course Vital Signs 03/06/20 03/06/20 19:13 20:04 Temperature 98 F 98 F Pulse Rate 97 97 Respiratory 18 18 Rate Blood Pressure 120/71 120/71 O2 Sat by Pulse 99 99 Oximetry Medical Decision Making - Medical Decision Making 24-year-old male patient presented to the emergency department today for evaluation of draining abscess to the left lower abdomen. Patient was started on Bactrim this morning by urgent care. He is afebrile, vital signs. Evaluation of the area does reveal an ulcer with no tracking, there is purulent drainage present. This was sent for culture. Patient is instructed to apply warm compresses several times daily. He is instructed to complete his antibiotic prescription. He is instructed to follow-up the primary care physician for recheck in 1-2 days. Return parameters were discussed in detail. He verbalizes understanding and agrees with this plan. Disposition Clinical Impression: Abscess Disposition: HOME SELF-CARE Condition: Good Instructions (If sedation given, give patient instructions): Abscess (ED) Additional Instructions: Apply warm compresses 20 minutes at a time at least 3-4 times per day. Complete antibiotic prescription in full. Follow up with your primary care physician for recheck in 1-2 days. Return to the emergency department immediately for any new, worsening, or concerning symptoms. Is patient prescribed a controlled substance at d/c from ED?: No Referrals: Eliazar Burton MD [Primary Care Provider] - 1-2 days Time of Disposition: 20:00
== END 2020-03-06 20:16 | disposition home or self-care (01) ==
LOC: EC 19:12
DX: L02.211 Cutaneous abscess of abdominal wall (principal); F17.200 Nicotine dependence, unspecified, uncomplicated; Z86.14 Personal history of Methicillin resistant Staphylococcus aureus infection
CPT/HCPCS: 87070; 87205; 99283

== ENCOUNTER → 2020-03-12 | Outpatient (CLI) | payer OTHER ==
--- NOTE | 2020-03-12 09:56 | US ---
EXAMINATION TYPE: US abdomen limited DATE OF EXAM: 03/12/2020 COMPARISON: CT January 29, 2020 CLINICAL HISTORY: L03.315 Cellulitis of perineum, L02.825. Abscess/wound left lower quadrant at waist line x 1 week, patient states he gets a lot of small boils and abscesses. LLQ at patients area of concern: superficial 0.9 x 0.5 x 2.6cm irregular complex vascular area seen In the terminal layer there is oval hypoechoic to anechoic elongated area without thick wall and havi ng vascularity could reflect a soft tissue infection or cellulitis. No thick wall drainable abscess n oted. IMPRESSION: As above.
== END | disposition home or self-care (01) ==
LOC: RADUSMAIN 09:02
PROVIDERS: ATTEND Family Medicine
DX: L03.315 Cellulitis of perineum (principal); L02.828 Furuncle of other sites
CPT/HCPCS: 76705

== ENCOUNTER 2020-08-09 20:14 | Emergency (ER) | payer OTHER ==
[2020-08-09 20:20] VITALS: RESP 18
[2020-08-09] MEDS ORDERED: SULFAMETHOX-TMP 800-160MG 1 EACH TAB PO STA (21:09)
--- NOTE | 2020-08-09 21:32 | ED ---
General Adult HPI - General Chief complaint: Skin/Abscess/Foreign Body Stated complaint: Abdominal abscess Time Seen by Provider: 08/09/20 20:32 Source: patient, RN notes reviewed, old records reviewed Mode of arrival: ambulatory Limitations: no limitations - History of Present Illness Initial comments: 24-year-old male patient presents to ED for evaluation of abdominal abscesses. Patient worse he gets these frequently and he has a appointment with the garment looper in the next couple weeks. Reports that for about 5 or 6 days she's had anterior lower abdominal abscesses. Patient reports this started draining today. He comes or deformity antibiotics. He denies any fevers or systemic symptoms. Systemic: Pt denies fatigue, fever/chills, rash. Pt denies weakness, night sweats, weight loss. Neuro: Pt denies headache, visual disturbances, syncope or pre-syncope. HEENT: Pt denies ocular discharge or irritation, otalgia, rhinorrhea, pharyngitis or notable lymphadenopathy. Cardiopulmonary: Pt denies chest pain, SOB, heart palpitations, dyspnea on exertion. Abdominal/GI: Pt denies abdominal pain, n/v/d. : Pt denies dysuria, burning w/ urination, frequency/urgency. Denies new onset urinary or bowel incontinence. MSK: Pt denies myalgia, loss of strength or function in extremities. Neuro: Pt denies new onset weakness, paresthesias. - Related Data Home Medications Medication Instructions Recorded Confirmed Acetaminophen Tab [Tylenol Tab] 650 mg PO Q6H PRN 02/15/19 02/15/19 Previous Rx's Medication Instructions Recorded Ondansetron Odt [Zofran Odt] 4 mg PO Q8HR PRN #10 tab 02/15/19 Cephalexin [Keflex] 500 mg PO Q6HR #40 cap 05/21/19 Sulfamethox-Tmp 800-160Mg [Bactrim 1 each PO Q12HR #20 tab 05/21/19 Ds] Ibuprofen [Motrin] 600 mg PO Q8HR PRN #20 tab 10/30/19 Dicyclomine [Bentyl] 10 mg PO QID #30 capsule 01/24/20 Sulfamethox-Tmp 800-160Mg [Bactrim 1 tab PO Q12HR #20 tab 08/09/20 DS 800-160 mg] Allergies Allergy/AdvReac Type Severity Reaction Status Date / Time No Known Allergies Allergy Verified 08/09/20 20:20 Review of Systems ROS Statement: Those systems with pertinent positive or pertinent negative responses have been documented in the HPI. ROS Other: All systems not noted in ROS Statement are negative. Past Medical History Past Medical History: GERD/Reflux, Skin Disorder Additional Past Medical History / Comment(s): migraine CARRILLO History of Any Multi-Drug Resistant Organisms: MRSA Date of last positivie culture/infection: 2017 MDRO Source:: BASE TAILBONE Additional Past Surgical History / Comment(s): REPAIR DOG BITES X2 - FACE, THEN RT EYE. Incision and drianage of MRSA abcess on coccyx Past Anesthesia/Blood Transfusion Reactions: No Reported Reaction Past Psychological History: ADD/ADHD, Bipolar Smoking Status: Current every day smoker Past Alcohol Use History: Rare Past Drug Use History: None Reported - Past Family History Mother Family Medical History: Asthma, COPD, Diabetes Mellitus, Eye Disorder, Hyperlipidemia, Hypertension, Osteoarthritis (OA) Additional Family Medical History / Comment(s): neuropathy Father Family Medical History: GERD/Reflux, Hyperlipidemia, Hypertension, Osteoarthritis (OA) Additional Family Medical History / Comment(s): hepatits C General Exam - General Exam Comments Initial Comments: Constitutional: NAD, AOX3, Pt has pleasant affect. HEENT: NC/AT, trachea midline, neck supple, no lymphadenopathy. Posterior pharynx non erythematous, without exudates. External ears appear normal, without discharge. Mucous membranes moist. Eyes PERRLA, EOM intact. There is no scleral icterus. No pallor noted. Cardiopulmonary: RRR, no murmurs, rubs or gallops, no JVD noted. Lungs CTAB in anterior and posterior levy. No peripheral edema. Abdominal exam: Abdomen soft and non-distended. Abdomen non-tender to palpation in all 4 quadrants. Bowel sounds active in LLQ. No hepatosplenomegaly. No ecchymosis. Neuro: CN II-XII grossly intact. No nuchal rigidity. No raccon eyes, no poon sign, no hemotympanum. No cervical spinal tenderness. MSK: Full active ROM in upper and lower extremities. Derm: Actively draining abscesses about 2 x 2 centimeter lower pannusa no cellulitic changes no streaking currently nonfluctuant. Culture obtained. Limitations: no limitations Course Vital Signs 10/03/20 20:15 Temperature 98.1 F Pulse Rate 101 H Respiratory 18 Rate Blood Pressure 131/92 O2 Sat by Pulse 98 Oximetry Medical Decision Making - Medical Decision Making 24-year-old male patient presents to ED for evaluation of abscesses. Patient does have 2 abscesses on his lower pannus region. There actively draining. Culture was obtained. No further drainage is required. Patient was placed on Bactrim and discharged with outpatient primary care follow-up and return precautions. Case discussed with Dr. Phillips. Disposition Clinical Impression: Abscess Disposition: HOME SELF-CARE Condition: Stable Instructions (If sedation given, give patient instructions): Abscess (ED) Additional Instructions: Take antibiotics as directed. Follow-up with primary care provider tomorrow. Return to ER if any worsening symptoms. Prescriptions: Sulfamethox-Tmp 800-160Mg [Bactrim DS 800-160 mg] 1 tab PO Q12HR #20 tab Is patient prescribed a controlled substance at d/c from ED?: No Referrals: Eliazar Burton MD [Primary Care Provider] - 1-2 days
[2020-08-09 22:04] VITALS: BP 125/68; PULSE 95; TEMP 98.6
== END 2020-08-09 22:00 | disposition home or self-care (01) ==
LOC: EC 20:14
DX: L02.211 Cutaneous abscess of abdominal wall (principal); F17.200 Nicotine dependence, unspecified, uncomplicated; Z86.14 Personal history of Methicillin resistant Staphylococcus aureus infection
CPT/HCPCS: 87070; 87205; 99284

== ENCOUNTER 2020-09-01 02:30 | Emergency (ER) | payer OTHER ==
[2020-09-01] MEDS ORDERED: ACETAMINOPHEN TAB 500 MG TAB PO STA (02:46)
[2020-09-01] MEDS ORDERED: guaiFENesin-DM 100-10MG/5ML 10 ML CUP PO STA (02:47)
[2020-09-01] MEDS ORDERED: SODIUM CHLORIDE 0.9% 1,000 ML IV ONE (02:47)
[2020-09-01] MEDS ORDERED: methylPREDNISolone SOD SUCCI 125 MG/2 ML VIAL IV STA (02:47)
--- NOTE | 2020-09-01 02:55 | ED ---
General Adult HPI - General Source: patient, RN notes reviewed, old records reviewed Mode of arrival: ambulatory Limitations: no limitations <Olesya Wilson - Last Filed: 09/01/20 03:27> <Nicole Collins - Last Filed: 09/01/20 05:11> - General Chief complaint: Shortness of Breath Stated complaint: SOB Time Seen by Provider: 09/01/20 02:35 - History of Present Illness Initial comments: 24-year-old male presents emergency department today with 3 days of worsening cough congestion difficulty breathing and chest pain. Patient reports that he feels that substance vomiting and diarrhea earlier in the week. 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 He does report that we could be exposed to cold 19. Patient is a smoker. He denies any recent Motrin or Tylenol use. He denies any recorded fevers at home. He reports no history of asthma or lung diseases. (Olesya Wilson) - Related Data Home Medications Medication Instructions Recorded Confirmed Acetaminophen Tab [Tylenol Tab] 650 mg PO Q6H PRN 02/15/19 02/15/19 Previous Rx's Medication Instructions Recorded Ondansetron Odt [Zofran Odt] 4 mg PO Q8HR PRN #10 tab 02/15/19 Cephalexin [Keflex] 500 mg PO Q6HR #40 cap 05/21/19 Sulfamethox-Tmp 800-160Mg [Bactrim 1 each PO Q12HR #20 tab 05/21/19 Ds] Ibuprofen [Motrin] 600 mg PO Q8HR PRN #20 tab 10/30/19 Dicyclomine [Bentyl] 10 mg PO QID #30 capsule 01/24/20 Sulfamethox-Tmp 800-160Mg [Bactrim 1 tab PO Q12HR #20 tab 08/09/20 DS 800-160 mg] Albuterol Inhaler [Ventolin Hfa 1 puff INHALATION Q4H PRN #1 09/01/20 Inhaler] inhaler Allergies Allergy/AdvReac Type Severity Reaction Status Date / Time No Known Allergies Allergy Verified 09/01/20 02:34 Review of Systems ROS Other: All systems not noted in ROS Statement are negative. <Olesya Wilson - Last Filed: 09/01/20 03:27> ROS Other: All systems not noted in ROS Statement are negative. <Nicole Collins - Last Filed: 09/01/20 05:11> ROS Statement: Those systems with pertinent positive or pertinent negative responses have been documented in the HPI. Past Medical History Past Medical History: GERD/Reflux, Skin Disorder Additional Past Medical History / Comment(s): migraine CARRILLO History of Any Multi-Drug Resistant Organisms: MRSA Date of last positivie culture/infection: 2018 MDRO Source:: [facility] Additional Past Surgical History / Comment(s): REPAIR DOG BITES X2 - FACE, THEN RT EYE. Incision and drianage of MRSA abcess on coccyx Past Anesthesia/Blood Transfusion Reactions: No Reported Reaction Past Psychological History: ADD/ADHD, Bipolar Smoking Status: Current every day smoker Past Alcohol Use History: Rare Past Drug Use History: None Reported - Past Family History Mother Family Medical History: Asthma, COPD, Diabetes Mellitus, Eye Disorder, Hyperlipidemia, Hypertension, Osteoarthritis (OA) Additional Family Medical History / Comment(s): neuropathy Father Family Medical History: GERD/Reflux, Hyperlipidemia, Hypertension, Osteoarthritis (OA) Additional Family Medical History / Comment(s): hepatits C <Olesya Wilson - Last Filed: 09/01/20 03:27> General Exam Limitations: no limitations General appearance: alert, in no apparent distress Head exam: Present: atraumatic, normocephalic, normal inspection Eye exam: Present: normal appearance, PERRL, EOMI. Absent: scleral icterus, conjunctival injection, periorbital swelling ENT exam: Present: normal exam, mucous membranes moist Neck exam: Present: normal inspection. Absent: tenderness, meningismus, lymphadenopathy Respiratory exam: Present: normal lung sounds bilaterally, wheezes (patient has wheezing throughout all lung levy.). Absent: respiratory distress, rales, rhonchi, stridor Cardiovascular Exam: Present: regular rate, normal rhythm, normal heart sounds. Absent: systolic murmur, diastolic murmur, rubs, gallop, clicks GI/Abdominal exam: Present: soft, normal bowel sounds. Absent: distended, tenderness, guarding, rebound, rigid Extremities exam: Present: normal inspection, full ROM, normal capillary refill. Absent: tenderness, pedal edema, joint swelling, calf tenderness Back exam: Present: normal inspection Neurological exam: Present: alert, oriented X3, CN II-XII intact Psychiatric exam: Present: normal affect, normal mood Skin exam: Present: warm, dry, intact, normal color. Absent: rash <Olesya Wilson - Last Filed: 09/01/20 03:27> - General Exam Comments Initial Comments: Patient is a 24-year-old male. Patient appears in moderate discomfort. Audible wheezing upon entering room. (Olesya Wilson) Course Vital Signs 09/01/20 09/01/20 09/01/20 02:30 03:49 03:50 Temperature 99 F Pulse Rate 104 H 110 H Respiratory 20 26 H 26 H Rate Blood Pressure 120/77 116/89 O2 Sat by Pulse 100 99 Oximetry 09/01/20 09/01/20 03:54 04:02 Temperature Pulse Rate 108 H 110 H Respiratory Rate Blood Pressure O2 Sat by Pulse Oximetry Medical Decision Making <Olesya Wilson - Last Filed: 09/01/20 03:27> - Lab Data Result diagrams: 09/01/20 02:50 09/01/20 02:50 <Nicole Collins - Last Filed: 09/01/20 05:11> - Medical Decision Making Patient care was signed out to Olesya MENDOZA, patient had presented with 3 days of worsening symptoms concerning for COVID 19. Labs are relatively unremar kable CRP is elevated, chest x-ray is concerning for COVID 19. These results were discussed with the patient I advised the patient that he likely does have COVID 19, advised that he needs to quarantine. Advised patient he was notified of any positive test results and he can call the hospital on Tue for test results. Past with the patient that he does have risk factors for worsening disease including obesity and cigarette smoking. Advised patient to call 911 or return to the ER immediately if he has any worsening shortness of breath. Advised the patient he needs to purchase a pulse ox to monitor his oxygen at home. 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 (Nicole Collins) - Lab Data Lab Results 09/01/20 09/01/20 09/01/20 Range/Units 02:50 02:50 02:50 WBC 8.6 (3.8-10.6) k/uL RBC 5.16 (4.30-5.90) m/uL Hgb 15.5 (13.0-17.5) gm/dL Hct 46.8 (39.0-53.0) % MCV 90.7 (80.0-100.0) fL MCH 30.1 (25.0-35.0) pg MCHC 33.1 (31.0-37.0) g/dL RDW 13.2 (11.5-15.5) % Plt Count 273 (150-450) k/uL Neutrophils % 58 % Lymphocytes % 27 % Monocytes % 7 % Eosinophils % 5 % Basophils % 2 % Neutrophils # 5.0 (1.3-7.7) k/uL Lymphocytes # 2.3 (1.0-4.8) k/uL Monocytes # 0.6 (0-1.0) k/uL Eosinophils # 0.4 (0-0.7) k/uL Basophils # 0.1 (0-0.2) k/uL PT 9.5 (9.0-12.0) sec INR 0.9 (<1.2) APTT 29.7 (22.0-30.0) sec Sodium 137 (137-145) mmol/L Potassium 4.0 (3.5-5.1) mmol/L Chloride 105 (98-107) mmol/L Carbon Dioxide 22 (22-30) mmol/L Anion Gap 10 mmol/L BUN 12 (9-20) mg/dL Creatinine 0.78 (0.66-1.25) mg/dL Est GFR (CKD-EPI)AfAm >90 (>60 ml/min/1.73 sqM) Est GFR (CKD-EPI)NonAf >90 (>60 ml/min/1.73 sqM) Glucose 111 H (74-99) mg/dL Plasma Lactic Acid Prasanna (0.7-2.0) mmol/L Calcium 9.3 (8.4-10.2) mg/dL Magnesium 2.0 (1.6-2.3) mg/dL Total Bilirubin 0.6 (0.2-1.3) mg/dL AST 46 (17-59) U/L ALT 49 (4-49) U/L Alkaline Phosphatase 85 (38-126) U/L Lactate Dehydrogenase 465 (313-618) U/L C-Reactive Protein 43.2 H (<10.0) mg/L Total Protein 8.0 (6.3-8.2) g/dL Albumin 4.4 (3.5-5.0) g/dL 09/01/20 Range/Units 02:50 WBC (3.8-10.6) k/uL RBC (4.30-5.90) m/uL Hgb (13.0-17.5) gm/dL Hct (39.0-53.0) % MCV (80.0-100.0) fL MCH (25.0-35.0) pg MCHC (31.0-37.0) g/dL RDW (11.5-15.5) % Plt Count (150-450) k/uL Neutrophils % % Lymphocytes % % Monocytes % % Eosinophils % % Basophils % % Neutrophils # (1.3-7.7) k/uL Lymphocytes # (1.0-4.8) k/uL Monocytes # (0-1.0) k/uL Eosinophils # (0-0.7) k/uL Basophils # (0-0.2) k/uL PT (9.0-12.0) sec INR (<1.2) APTT (22.0-30.0) sec Sodium (137-145) mmol/L Potassium (3.5-5.1) mmol/L Chloride (98-107) mmol/L Carbon Dioxide (22-30) mmol/L Anion Gap mmol/L BUN (9-20) mg/dL Creatinine (0.66-1.25) mg/dL Est GFR (CKD-EPI)AfAm (>60 ml/min/1.73 sqM) Est GFR (CKD-EPI)NonAf (>60 ml/min/1.73 sqM) Glucose (74-99) mg/dL Plasma Lactic Acid Prasanna 2.3 H* (0.7-2.0) mmol/L Calcium (8.4-10.2) mg/dL Magnesium (1.6-2.3) mg/dL Total Bilirubin (0.2-1.3) mg/dL AST (17-59) U/L ALT (4-49) U/L Alkaline Phosphatase (38-126) U/L Lactate Dehydrogenase (313-618) U/L C-Reactive Protein (<10.0) mg/L Total Protein (6.3-8.2) g/dL Albumin (3.5-5.0) g/dL 09/01/20 03:27 EKG shows sinus tachycardia low voltage QRS. Abnormal QRS T angleconsider primary T-wave abnormality. Ventricular rate of 104 bpm. Apparently was 150 ms. QRS duration is 68 ms. QTc is 308/405 ms. (Olesya Wilson) Disposition <Olesya Wilson - Last Filed: 09/01/20 03:27> Is patient prescribed a controlled substance at d/c from ED?: No <Nicole Collins - Last Filed: 09/01/20 05:11> Clinical Impression: Exposure to COVID-19 virus Disposition: HOME SELF-CARE Condition: Stable Additional Instructions: You were evaluated in the emergency department with symptoms concerning for infection with coronavirus COVID-19. COVID-19 is a new strain of a common viral illness. While a diagnosis of coronavirus may feel scary, most cases of coronavirus are mild and resolve on their own without hospitalization. At this time, we feel that you are safe to go home. Steps to take at home to care for yourself: Get lots of rest and stay hydrated by drinking plenty of fluids. You can take acetaminophen (eg, Tylenol) or Ibuprofen (eg Motrin) for fevers or body aches. I recommend that you obtain a home pulse oximeter is a contractor oxygen saturation, call 911 or return to the emergency department if this is below 92% Currently there is no data on any home medications benefiting COVID 19 pat ient's, some research has suggested vitamin C, zinc, vitamin D or aspirin 81 mg daily may be beneficial. You can choose to take these medications if he feel he will benefit you. If you have questions, call your primary care doctor, contact your local health department, or visit the CDCs website at cdc.gov/coronavirus Speak with your primary care doctor within 1 week to discuss a plan to follow up. How to avoid spreading the virus to others: - Stay at home, except if seeking medical care. - Cover your coughs (with a tissue or in your elbow), and avoid touching your face unnecessarily. - Wash your hands often (using soap and water for 20 seconds) to decrease your risk of infecting others. - Try to avoid close contact with others in your home, including pets. If possible, use a different bathroom, and sleep in a separate room. If you must be near others, be sure to wear a face mask and wash your hands before interacting with them. Disinfect and avoid sharing commonly used items like phones, towels, and dishes with others. - If a test was sent and is positive, your local health department will contact you. Follow their directions about when to go back to work or school. - If you or those around you are concerned about COVID-19, call your primary care doctor for advice about steps to take. Your health system may have specific locations to go for testing if you are not extremely sick. This lowers the risk that you could catch a virus or pass it on in the emergency department waiting room. If you are extremely sick and going to the emergency department, call ahead, so they can prepare for your visit. Speak to your doctor or come back to the emergency department for new or worsening symptoms, such as severe headache, confusion, chest pain, difficulty breathing, or vomiting to the point that you cannot drink fluids. Review medication inserts for side effects, and call the emergency department if you have any questions about the medications or care you received. Prescriptions: Albuterol Inhaler [Ventolin Hfa Inhaler] 1 puff INHALATION Q4H PRN #1 inhaler PRN Reason: Wheezing Referrals: Eliazar Burton MD [Primary Care Provider] - 1-2 days
[2020-09-01] MEDS ORDERED: LORazepam 2 MG/ML INJ IV STA (02:58)
[2020-09-01] MEDS ORDERED: ALBUTEROL NEBULIZED 2.5 MG/3 ML INHALATION STA (03:00)
[2020-09-01] MEDS ORDERED: BUDESONIDE 1 MG/2 ML NEBU INHALATION STA (03:22)
[2020-09-01] MEDS ORDERED: ALBUTEROL NEBULIZED 2.5 MG/3 ML INHALATION PRN (03:26)
[2020-09-01 03:42] LABS: Basophils # (A) 0.1 k/uL (0-0.2); Basophils % (A) 2 %; Eosinophils # (A) 0.4 k/uL (0-0.7); Eosinophils % (A) 5 %; HCT 46.8 % (39.0-53.0); HGB 15.5 gm/dL (13.0-17.5); Lymphocytes # (A) 2.3 k/uL (1.0-4.8); Lymphocytes % (A) 27 %; MCH 30.1 pg (25.0-35.0); MCHC 33.1 g/dL (31.0-37.0); MCV 90.7 fL (80.0-100.0); Mean Platelet Volume 7.2; Monocytes # (A) 0.6 k/uL (0-1.0); Monocytes % (A) 7 %; Neutrophils % (A) 58 %; Platelet Count 273 k/uL (150-450); RBC 5.16 m/uL (4.30-5.90); RDW 13.2 % (11.5-15.5); WBC 8.6 k/uL (3.8-10.6)
[2020-09-01 03:52] LABS: ALT 49 U/L (4-49); AST 46 U/L (17-59); African American GFR (CKD) >90 (>60 ml/min/1.73 sqM); Albumin 4.4 g/dL (3.5-5.0); Alkaline Phosphatase 85 U/L (38-126); Anion Gap 10 mmol/L; Blood Urea Nitrogen 12 mg/dL (9-20); C Reactive Protein 43.2 mg/L (<10.0); Calcium 9.3 mg/dL (8.4-10.2); Carbon Dioxide 22 mmol/L (22-30); Chloride 105 mmol/L (98-107); Glucose 111 mg/dL (74-99); LDH 465 U/L (313-618); Non-African American GFR(CKD) >90 (>60 ml/min/1.73 sqM); Sodium 137 mmol/L (137-145); Total Bilirubin 0.6 mg/dL (0.2-1.3)
[2020-09-01 03:53] LABS: INR 0.9 (<1.2); Partial Thromboplastin Time 29.7 sec (22.0-30.0); Prothrombin Time 9.5 sec (9.0-12.0)
--- NOTE | 2020-09-01 03:57 | XR ---
EXAM: XR Chest, 1 View CLINICAL HISTORY: ITS.REASON XR Reason: Suspected COVID-19 pneumonia TECHNIQUE: Frontal view of the chest. COMPARISON: No relevant prior studies available. FINDINGS: Lungs: Patchy bilateral atelectasis or infiltrate. Pleural space: No significant pleural effusion or pneumothorax. Heart: Prominent cardiomediastinal silhouette, may be related to technique or other etiology. Mediastinum: See above. Bones/joints: No acute fracture. IMPRESSION: Patchy bilateral atelectasis or infiltrate.
[2020-09-01 05:19] VITALS: BP 108/63; PULSE 104; RESP 20; TEMP 97.7
[2020-09-01 14:20] LABS: Ferritin 140.3 ng/mL (22.0-322.0)
== END 2020-09-01 05:20 | disposition home or self-care (01) ==
LOC: EC 02:30
DX: R06.02 Shortness of breath (principal); R05 Cough; R79.82 Elevated C-reactive protein (CRP); E66.9 Obesity, unspecified; F17.210 Nicotine dependence, cigarettes, uncomplicated; Z20.828 Contact with and (suspected) exposure to other viral communicable diseases; Z86.14 Personal history of Methicillin resistant Staphylococcus aureus infection; Z68.38 Body mass index [BMI] 38.0-38.9, adult
CPT/HCPCS: 36415; 71045; 80053; 82728; 83605; 83615; 83735; 84145; 85025; 85610; 85730; 86140; 87040; 93005; 94640; 96361; 96374; 96375; 99285

== ENCOUNTER → 2021-01-22 | Outpatient (CLI) | payer OTHER ==
[2021-01-22 23:31] LABS: Basophils # (A) 0.06 X 10*3/uL (0.00-0.10); Basophils % (A) 0.6 %; Eosinophils # (A) 0.22 X 10*3/uL (0.04-0.35); Eosinophils % (A) 2.3 %; HCT 44.8 % (39.6-50.0); HGB 14.8 g/dL (13.0-17.0); Lymphocytes # (A) 2.17 X 10*3/uL (0.90-5.00); MCH 30.3 pg (27.0-32.0); MCV 91.6 fL (80.0-97.0); Mean Platelet Volume 10.9 fL (9.5-12.2); Monocytes # (A) 0.44 X 10*3/uL (0.20-1.00); Monocytes % (A) 4.7 %; Neutrophils # (A) 6.53 X 10*3/uL (1.80-7.70); Neutrophils % (A) 69.1 %; Platelet Count 279 X 10*3/uL (140-440); RBC 4.89 X 10*6/uL (4.40-5.60); RDW 13.2 % (11.5-14.5); WBC 9.45 X 10*3/uL (4.50-10.00)
[2021-01-23 02:46] LABS: African American GFR (CKD) 135.2 (60.0-200.0); Albumin 4.4 g/dL (3.80-4.90); Anion Gap 9.2 mmol/L (4.00-12.00); BUN/Creat Ratio 13.33 Ratio (12.00-20.00); Calcium 9.6 mg/dL (8.7-10.3); Carbon Dioxide 22.8 mmol/L (21.6-31.8); Globulin 2.2 g/dL (1.6-3.3); Non-African American GFR(CKD) 116.6 (60.0-200.0); Potassium 4.2 mmol/L (3.5-5.5); Total Bilirubin 0.6 mg/dL (0.2-1.2); Total Protein 6.6 g/dL (6.2-8.2)
== END | disposition home or self-care (01) ==
LOC: LABWHC1 12:44
PROVIDERS: ATTEND Nurse Practitioner Family
DX: R19.7 Diarrhea, unspecified (principal); R10.9 Unspecified abdominal pain; R11.10 Vomiting, unspecified
CPT/HCPCS: 36415; 80053; 82150; 82272; 83690; 85025; 87045; 87046; 87328; 87329

== ENCOUNTER 2021-02-07 21:04 | Emergency (ER) | payer OTHER ==
[2021-02-07] MEDS ORDERED: SODIUM CHLORIDE 0.9% 500 ML 500 ML IV ONE (21:57)
[2021-02-07] MEDS ORDERED: SODIUM CHLORIDE 0.9% 1,000 ML IV SCH (22:00)
[2021-02-07 22:29] LABS: Basophils # (A) 0.1 k/uL (0-0.2); Basophils % (A) 1 %; Eosinophils # (A) 0.3 k/uL (0-0.7); Eosinophils % (A) 4 %; HCT 45.3 % (39.0-53.0); HGB 15.5 gm/dL (13.0-17.5); Lymphocytes # (A) 2.6 k/uL (1.0-4.8); Lymphocytes % (A) 28 %; MCH 30.7 pg (25.0-35.0); MCHC 34.2 g/dL (31.0-37.0); MCV 89.8 fL (80.0-100.0); Monocytes # (A) 0.4 k/uL (0-1.0); Monocytes % (A) 4 %; Neutrophils # (A) 5.9 k/uL (1.3-7.7); Neutrophils % (A) 62 %; Platelet Count 279 k/uL (150-450); RBC 5.05 m/uL (4.30-5.90); RDW 13.2 % (11.5-15.5); WBC 9.6 k/uL (3.8-10.6)
[2021-02-07 22:44] LABS: INR 0.9 (<1.2); Partial Thromboplastin Time 25.4 sec (22.0-30.0); Prothrombin Time 9.6 sec (9.0-12.0)
[2021-02-07 22:45] LABS: ALT 34 U/L (4-49); AST 25 U/L (17-59); African American GFR (CKD) >90 (>60 ml/min/1.73 sqM); Albumin 4.3 g/dL (3.5-5.0); Alkaline Phosphatase 96 U/L (38-126); Amylase 48 U/L (30-110); Anion Gap 8 mmol/L; Blood Urea Nitrogen 15 mg/dL (9-20); Calcium 9.5 mg/dL (8.4-10.2); Carbon Dioxide 26 mmol/L (22-30); Chloride 105 mmol/L (98-107); Glucose 123 mg/dL (74-99); Lipase 125 U/L (23-300); Non-African American GFR(CKD) >90 (>60 ml/min/1.73 sqM); Potassium 4.4 mmol/L (3.5-5.1); Sodium 139 mmol/L (137-145); Total Bilirubin 0.4 mg/dL (0.2-1.3); Total Protein 7.6 g/dL (6.3-8.2)
--- NOTE | 2021-02-07 23:19 | CT ---
EXAMINATION TYPE: CT abdomen pelvis w con DATE OF EXAM: 02/07/2021 COMPARISON: 01/29/2020 HISTORY: Rectal bleeding CT DLP: 3359 mGycm Automated exposure control for dose reduction was used. CONTRAST: Performed with IV Contrast, patient injected with 100 mL of Isovue 300. Images obtained from the diaphragm to the floor the pelvis with IV contrast. Lung bases are clear. There is no pleural effusion. Heart size is normal. There is no pericardial eff usion. Liver spleen stomach pancreas appear intact. Bile ducts are not dilated. Gallbladder appears normal. There is no adrenal mass. Kidneys show satisfactory contrast opacification. There is no hydronephrosi s. Ureters are not dilated. Delayed images show normal renal excretion. Appendix is posterior and siobhan ears normal. Bladder distends smoothly. There is no inguinal hernia. There is no free fluid in the pe lvis. There is no mesenteric edema. There is no ascites or free air. There is no bowel obstruction. The lumbar vertebra have normal spacing and alignment. There is no compression fracture. Posterior el ements are intact. Bony pelvis is intact. The hip joints appear normal. IMPRESSION: Negative CT scan abdomen and pelvis. Normal appendix. No adverse change compared to old exam.
--- NOTE | 2021-02-08 00:08 | ED ---
Abdominal Pain HPI - General Chief Complaint: Abdominal Pain Stated Complaint: Abd Pain Time Seen by Provider: 02/07/21 21:38 Source: patient Mode of arrival: ambulatory Limitations: no limitations - History of Present Illness Initial Comments: 25-year-old female presenting today for chief complaint of abdominal discomfort, rectal bleeding. Patient states he inserted a tubal his rectum from his shower head and squirted water "far up there" he states he had bleeding after, and waited a few hours he states he had an additional episode of bright red blood. Patient states she has had some slight abdominal cramping and distention and was concerned a possible perforated his rectum and presented here for further evaluation. Patient denies any upper abdominal pain chest pain shortness of breath he states he did feel slightly chilled earlier denies fevers . He does of respiratory symptoms or additional complaints upon arrival patient appears well and nontoxic distress - Related Data Home Medications Medication Instructions Recorded Confirmed No Known Home Medications 02/07/21 02/07/21 Allergies Allergy/AdvReac Type Severity Reaction Status Date / Time No Known Allergies Allergy Verified 02/07/21 23:17 Review of Systems ROS Statement: Those systems with pertinent positive or pertinent negative responses have been documented in the HPI. ROS Other: All systems not noted in ROS Statement are negative. Past Medical History Past Medical History: GERD/Reflux, Skin Disorder Additional Past Medical History / Comment(s): migraine CARRILLO History of Any Multi-Drug Resistant Organisms: MRSA Date of last positivie culture/infection: 2017 [facility]O [facility] Additional Past Surgical History / Comment(s): REPAIR DOG BITES X2 - FACE, THEN RT EYE. Incision and drianage of MRSA abcess on coccyx Past Anesthesia/Blood Transfusion Reactions: No Reported Reaction Past Psychological History: ADD/ADHD, Bipolar Smoking Status: Current every day smoker Past Alcohol Use History: Rare Past Drug Use History: None Reported - Past Family History Mother Family Medical History: Asthma, COPD, Diabetes Mellitus, Eye Disorder, Hyperlipidemia, Hypertension, Osteoarthritis (OA) Additional Family Medical History / Comment(s): neuropathy Father Family Medical History: GERD/Reflux, Hyperlipidemia, Hypertension, Osteoarthritis (OA) Additional Family Medical History / Comment(s): hepatits C General Exam - General Exam Comments Initial Comments: General: The patient is awake and alert, in no distress, and does not appear acutely ill. Eye: Pupils are equal, round and reactive to light, extra-ocular movements are intact. No nystagmus. There is normal conjunctiva bilaterally. No signs of icterus. Cardiovascular: There is a regular rate and rhythm. No murmur, rub or gallop is appreciated. Respiratory: Lungs are clear to auscultation, respirations are non-labored, breath sounds are equal. No wheezes, stridor, rales, or rhonchi. Gastrointestinal: Soft, non-distended,diffuse mild appearing discomfort to palpation of the abdomen, abdomen is without masses or organomegaly noted. There is no rebound or guarding present. No CVA tenderness. Bowel sounds are unremarkable Musculoskeletal: Normal ROM, no tenderness. Strength 5/5. Sensation intact. Pulses equal bilaterally 2+. Neurological: A&O x 3. CN II-XII intact grossly, There are no obvious motor or sensory deficits. Coordination appears grossly intact. Speech is normal. Skin: Skin is warm and dry and no rashes or lesions are noted. Psychiatric: Cooperative, appropriate mood & affect, normal judgment. Limitations: no limitations Course Vital Signs 02/07/21 02/07/21 02/08/21 21:08 23:11 00:13 Temperature 98.1 F 98.3 F Pulse Rate 102 H 86 89 Respiratory 16 18 20 Rate Blood Pressure 123/83 100/71 112/65 O2 Sat by Pulse 100 99 99 Oximetry Medical Decision Making - Medical Decision Making CT no perforation or free air. HgB Stable. No bright red blood per rectum on exam. No additional bloody episodes. Patient's BUN and creatinine is within normal limits. On repeat vital signs patient is no longer tachycardic his blood pressure is stable at this time after discussed the case by attending provider Dr cota we feel patient is stable for discharge and pcp f/u return for additional episode of bleeding, or worsening abodminal cramping/discomfort. - Lab Data Result diagrams: 02/07/21 22:17 02/07/21 22:17 Lab Results 02/07/21 02/07/21 02/07/21 Range/Units 22:17 22:17 22:17 WBC 9.6 (3.8-10.6) k/uL RBC 5.05 (4.30-5.90) m/uL Hgb 15.5 (13.0-17.5) gm/dL Hct 45.3 (39.0-53.0) % MCV 89.8 (80.0-100.0) fL MCH 30.7 (25.0-35.0) pg MCHC 34.2 (31.0-37.0) g/dL RDW 13.2 (11.5-15.5) % Plt Count 279 (150-450) k/uL MPV 7.0 Neutrophils % 62 % Lymphocytes % 28 % Monocytes % 4 % Eosinophils % 4 % Basophils % 1 % Neutrophils # 5.9 (1.3-7.7) k/uL Lymphocytes # 2.6 (1.0-4.8) k/uL Monocytes # 0.4 (0-1.0) k/uL Eosinophils # 0.3 (0-0.7) k/uL Basophils # 0.1 (0-0.2) k/uL PT 9.6 (9.0-12.0) sec INR 0.9 (<1.2) APTT 25.4 (22.0-30.0) sec Sodium 139 (137-145) mmol/L Potassium 4.4 (3.5-5.1) mmol/L Chloride 105 (98-107) mmol/L Carbon Dioxide 26 (22-30) mmol/L Anion Gap 8 mmol/L BUN 15 (9-20) mg/dL Creatinine 0.84 (0.66-1.25) mg/dL Est GFR (CKD-EPI)AfAm >90 (>60 ml/min/1.73 sqM) Est GFR (CKD-EPI)NonAf >90 (>60 ml/min/1.73 sqM) Glucose 123 H (74-99) mg/dL Plasma Lactic Acid Prasanna (0.7-2.0) mmol/L Calcium 9.5 (8.4-10.2) mg/dL Total Bilirubin 0.4 (0.2-1.3) mg/dL AST 25 (17-59) U/L ALT 34 (4-49) U/L Alkaline Phosphatase 96 (38-126) U/L Total Protein 7.6 (6.3-8.2) g/dL Albumin 4.3 (3.5-5.0) g/dL Amylase 48 (30-110) U/L Lipase 125 (23-300) U/L 02/07/21 Range/Units 22:17 WBC (3.8-10.6) k/uL RBC (4.30-5.90) m/uL Hgb (13.0-17.5) gm/dL Hct (39.0-53.0) % MCV (80.0-100.0) fL MCH (25.0-35.0) pg MCHC (31.0-37.0) g/dL RDW (11.5-15.5) % Plt Count (150-450) k/uL MPV Neutrophils % % Lymphocytes % % Monocytes % % Eosinophils % % Basophils % % Neutrophils # (1.3-7.7) k/uL Lymphocytes # (1.0-4.8) k/uL Monocytes # (0-1.0) k/uL Eosinophils # (0-0.7) k/uL Basophils # (0-0.2) k/uL PT (9.0-12.0) sec INR (<1.2) APTT (22.0-30.0) sec Sodium (137-145) mmol/L Potassium (3.5-5.1) mmol/L Chloride (98-107) mmol/L Carbon Dioxide (22-30) mmol/L Anion Gap mmol/L BUN (9-20) mg/dL Creatinine (0.66-1.25) mg/dL Est GFR (CKD-EPI)AfAm (>60 ml/min/1.73 sqM) Est GFR (CKD-EPI)NonAf (>60 ml/min/1.73 sqM) Glucose (74-99) mg/dL Plasma Lactic Acid Prasanna 1.6 (0.7-2.0) mmol/L Calcium (8.4-10.2) mg/dL Total Bilirubin (0.2-1.3) mg/dL AST (17-59) U/L ALT (4-49) U/L Alkaline Phosphatase (38-126) U/L Total Protein (6.3-8.2) g/dL Albumin (3.5-5.0) g/dL Amylase (30-110) U/L Lipase (23-300) U/L Disposition Clinical Impression: Rectal bleed Disposition: HOME SELF-CARE Condition: Good Instructions (If sedation given, give patient instructions): Rectal Bleeding (ED) Additional Instructions: Please use medication as discussed. Please follow-up with family doctor in the next 2 days. Please return to emergency room if the symptoms increase or worsen or for any other concerns. Is patient prescribed a controlled substance at d/c from ED?: No Referrals: Eliazar Burton MD [Primary Care Provider] - 1-2 days Time of Disposition: 00:07
[2021-02-08 00:14] VITALS: BP 112/65; PULSE 89; RESP 20; TEMP 98.3
== END 2021-02-08 00:14 | disposition home or self-care (01) ==
LOC: EC 21:04
DX: K62.5 Hemorrhage of anus and rectum (principal); F17.200 Nicotine dependence, unspecified, uncomplicated
CPT/HCPCS: 80053; 82150; 83605; 83690; 85025; 85610; 85730; 74177; 99284; 96360; 96361; Q9967

== ENCOUNTER 2021-05-28 00:25 | Emergency (ER) | payer OTHER ==
[2021-05-28 00:35] VITALS: TEMP 98.1
[2021-05-28] MEDS ORDERED: diphenhydrAMINE 50 MG/ML 1 ML VIAL IM STA (00:46)
[2021-05-28] MEDS ORDERED: LORazepam 2 MG/ML INJ IM STA (00:46)
--- NOTE | 2021-05-28 00:54 | ED ---
Male Urogenital HPI - General Chief complaint: Urogenital Stated complaint: FB in urethra Time Seen by Provider: 05/28/21 00:38 Source: patient, RN notes reviewed, old records reviewed Mode of arrival: ambulatory Limitations: no limitations - History of Present Illness Initial comments: This is a 25-year-old male who is being seen and can evaluation for urethral foreign body. Patient presents today for evaluation in regards to foreign body and his penis. Patient states that he was experimenting with x-rays and did stick a tube into his urethra. Patient states at some point to got lost and went up into his body. Patient presents today with foreign body that he has been unable to remove himself MD Complaint: other (Foreign body penis) -: hour(s) Location: penis Radiation: none Severity: severe Severity scale (1-10): 10 Quality: sharp Consistency: constant Improves with: none Worsens with: none Reports: denies other symptoms - Related Data Home Medications Medication Instructions Recorded Confirmed No Known Home Medications 02/07/21 02/07/21 Allergies Allergy/AdvReac Type Severity Reaction Status Date / Time No Known Allergies Allergy Verified 02/07/21 23:17 Review of Systems ROS Statement: Those systems with pertinent positive or pertinent negative responses have been documented in the HPI. ROS Other: All systems not noted in ROS Statement are negative. Past Medical History Past Medical History: GERD/Reflux, Skin Disorder Additional Past Medical History / Comment(s): migraine CARRILLO History of Any Multi-Drug Resistant Organisms: MRSA Date of last positivie culture/infection: 2017 MDRO Source:: BASE TAILBONE Additional Past Surgical History / Comment(s): REPAIR DOG BITES X2 - FACE, THEN RT EYE. Incision and drianage of MRSA abcess on coccyx. 17 teeth extracted on 02/13/21 Past Anesthesia/Blood Transfusion Reactions: No Reported Reaction Past Psychological History: ADD/ADHD, Bipolar Smoking Status: Current every day smoker Past Alcohol Use History: Rare Past Drug Use History: None Reported - Past Family History Mother Family Medical History: Asthma, COPD, Diabetes Mellitus, Eye Disorder, Hyperlipidemia, Hypertension, Osteoarthritis (OA) Additional Family Medical History / Comment(s): neuropathy Father Family Medical History: GERD/Reflux, Hyperlipidemia, Hypertension, Osteoarthritis (OA) Additional Family Medical History / Comment(s): hepatits C General Exam Limitations: no limitations General appearance: alert, in no apparent distress, anxious Head exam: Present: atraumatic, normocephalic, normal inspection Eye exam: Present: normal appearance, PERRL, EOMI. Absent: scleral icterus, conjunctival injection, periorbital swelling ENT exam: Present: normal exam, mucous membranes moist Neck exam: Present: normal inspection. Absent: tenderness, meningismus, lymphadenopathy Respiratory exam: Present: normal lung sounds bilaterally. Absent: respiratory distress, wheezes, rales, rhonchi, stridor Cardiovascular Exam: Present: normal rhythm, tachycardia, normal heart sounds. Absent: systolic murmur, diastolic murmur, rubs, gallop, clicks GI/Abdominal exam: Present: soft, normal bowel sounds. Absent: distended, tenderness, guarding, rebound, rigid Extremities exam: Present: normal inspection, full ROM, normal capillary refill. Absent: tenderness, pedal edema, joint swelling, calf tenderness Back exam: Present: normal inspection Neurological exam: Present: alert, oriented X3, CN II-XII intact Psychiatric exam: Present: normal affect, normal mood Skin exam: Present: warm, dry, intact, normal color. Absent: rash Course Vital Signs 05/28/21 05/28/21 05/28/21 00:32 02:23 02:25 Temperature 98.1 F Pulse Rate 109 H 104 H 104 H Respiratory 20 28 H 21 Rate Blood Pressure 125/86 126/85 144/99 O2 Sat by Pulse 97 100 100 Oximetry 05/28/21 05/28/21 05/28/21 02:30 02:35 02:40 Temperature Pulse Rate 107 H 106 H 103 H Respiratory 21 20 20 Rate Blood Pressure 120/88 115/81 O2 Sat by Pulse 100 100 100 Oximetry 05/28/21 05/28/21 03:04 03:40 Temperature Pulse Rate 89 82 Respiratory 18 20 Rate Blood Pressure 104/69 118/60 O2 Sat by Pulse 96 99 Oximetry - Reevaluation(s) Reevaluation #1: 05/28/21 04:18 Medical record is reviewed Reevaluation #2: 05/28/21 04:18 patient is very anxious remains anxious on arrival was try to remove foreign body by himself with some lubrication Patient has failed self removal Reevaluation #3: 05/28/21 04:18 Foreign body has been removed as it was kicked and itself, no bleeding no prior complications Reevaluation #4: 05/28/21 04:19 Patient informed of results and questions are answered Reevaluation #5: 05/28/21 04:19 Patient is currently awake alert able to ambulate without difficulty Procedures - Procedures Initial comment: Foreign body removal Foreigh body was anesthetized with Urojet Using slow gentle traction form body was able to be removed from urethra No complications - Procedural Sedation Procedural Sedation Start Time: 02:25 Procedural Sedation Stop Time: 03:00 ASA Class: I Mallampati Airway Score: 1 Preparation: principal research economist applied, pulse oximeter, capnometry used Ketamine: IV Ketamine Dose: 135 Complications: none Interventions: oxygen applied Patient Tolerated Procedure: well Medical Decision Making - Medical Decision Making 25 male to the ER with complaints of penis foreign body. This tube Was Unable to Be Pulled out. Patient Has Foreign Body Removed Currently and Can Be Discharged Home Disposition Clinical Impression: Penile FB Disposition: HOME SELF-CARE Condition: Good Instructions (If sedation given, give patient instructions): Soft Tissue Foreign Body (ED) Is patient prescribed a controlled substance at d/c from ED?: No Referrals: Eliazar Burton MD [Primary Care Provider] - 1-2 days
[2021-05-28] MEDS ORDERED: LIDOCAINE URO-JET JELLY 2% 5 ML KIT URETHRAL ONE (01:06)
[2021-05-28] MEDS ORDERED: SODIUM CHLORIDE 0.9% 500 ML 500 ML IV STA (01:49)
[2021-05-28] MEDS ORDERED: LORazepam 2 MG/ML INJ IV STA (01:49)
[2021-05-28] MEDS ORDERED: KETAMINE 10 MG/ML 20 ML VIAL IV ONE (01:49)
[2021-05-28] MEDS ORDERED: MORPHINE SULFATE 4 MG/ML SYRINGE IVP STA (01:49)
[2021-05-28 05:13] VITALS: BP 101/57; PULSE 77; RESP 16
== END 2021-05-28 05:14 | disposition home or self-care (01) ==
LOC: EC 00:25
DX: T19.4XXA Foreign body in penis, initial encounter (principal); F17.200 Nicotine dependence, unspecified, uncomplicated; X58.XXXA Exposure to other specified factors, initial encounter; Y93.89 Activity, other specified
CPT/HCPCS: 99152; 99283; 96374; 96375; 96361; 96372 ×2; 99153; J2060; J2270; J1200

== ENCOUNTER 2021-06-15 11:33 | Inpatient (IN) | payer MEDICAID, OTHER ==
--- NOTE | 2021-06-15 12:07 | ED ---
General Adult HPI - General Chief complaint: Psychiatric Symptoms Stated complaint: Mental health Time Seen by Provider: 06/15/21 11:50 Source: patient, RN notes reviewed, old records reviewed Mode of arrival: ambulatory Limitations: no limitations - History of Present Illness Initial comments: 25-year-old male who presents for psychiatric evaluation. Patient states that he is having a mental breakdown requests help. He states he's having suicidal thoughts and does have a plan to overdose on medication or to step out in front of traffic. Patient denies a specific suicide attempt. He has no physical complaints. No past medical history. - Related Data Home Medications Medication Instructions Recorded Confirmed No Known Home Medications 02/07/21 06/15/21 Allergies Allergy/AdvReac Type Severity Reaction Status Date / Time No Known Allergies Allergy Verified 06/15/21 13:02 Review of Systems ROS Statement: Those systems with pertinent positive or pertinent negative responses have been documented in the HPI. ROS Other: All systems not noted in ROS Statement are negative. Past Medical History Past Medical History: GERD/Reflux, Skin Disorder Additional Past Medical History / Comment(s): migraine CARRILLO, History of Any Multi-Drug Resistant Organisms: MRSA Date of last positivie culture/infection: 2017 MDRO Source:: BASE TAILBONE Additional Past Surgical History / Comment(s): REPAIR DOG BITES X2 - FACE, THEN RT EYE. Incision and drianage of MRSA abcess on coccyx. 17 teeth extracted on 02/13/21 Past Anesthesia/Blood Transfusion Reactions: No Reported Reaction Past Psychological History: ADD/ADHD, Bipolar Smoking Status: Current every day smoker Past Alcohol Use History: Rare Past Drug Use History: None Reported - Past Family History Mother Family Medical History: Asthma, COPD, Diabetes Mellitus, Eye Disorder, Hyperlipidemia, Hypertension, Osteoarthritis (OA) Additional Family Medical History / Comment(s): neuropathy Father Family Medical History: GERD/Reflux, Hyperlipidemia, Hypertension, Osteoarthritis (OA) Additional Family Medical History / Comment(s): hepatits C General Exam Limitations: no limitations General appearance: alert, in no apparent distress Head exam: Present: atraumatic, normocephalic Eye exam: Present: normal appearance, PERRL ENT exam: Present: normal exam Neck exam: Present: normal inspection. Absent: tenderness, meningismus Respiratory exam: Present: normal lung sounds bilaterally. Absent: respiratory distress, wheezes Cardiovascular Exam: Present: regular rate, normal rhythm GI/Abdominal exam: Present: soft. Absent: distended, tenderness, guarding Extremities exam: Present: normal inspection, normal capillary refill. Absent: pedal edema Neurological exam: Present: alert, oriented X3, CN II-XII intact. Absent: motor sensory deficit Psychiatric exam: Present: depressed, flat affect, suicidal ideation Skin exam: Present: warm, dry, intact Course Vital Signs 06/15/21 11:40 Temperature 98.8 F Pulse Rate 100 Respiratory 16 Rate Blood Pressure 117/79 O2 Sat by Pulse 99 Oximetry - Reevaluation(s) Reevaluation #1: 06/15/21 12:07 Patient medically cleared for EPS evaluation Medical Decision Making - Medical Decision Making Patient had been medically cleared, evaluated by [facility]. [facility] to require inpatient psychiatric evaluation and treatment. He will be admitted to this institution. He has signed himself in. - Lab Data Lab Results 06/15/21 Range/Units 12:12 Urine Opiates Screen Not Detected (NotDetected) Ur Oxycodone Screen Not Detected (NotDetected) Urine Methadone Screen Not Detected (NotDetected) Ur Propoxyphene Screen Not Detected (NotDetected) Ur Barbiturates Screen Not Detected (NotDetected) U Tricyclic Antidepress Not Detected (NotDetected) Ur Phencyclidine Scrn Not Detected (NotDetected) Ur Amphetamines Screen Not Detected (NotDetected) U Methamphetamines Scrn Not Detected (NotDetected) U Benzodiazepines Scrn Not Detected (NotDetected) Urine Cocaine Screen Not Detected (NotDetected) U Marijuana (THC) Screen Not Detected (NotDetected) Disposition Clinical Impression: Suicidal ideation, Depression Disposition: ADMITTED IP TO THIS [facility] Condition: Stable Is patient prescribed a controlled substance at d/c from ED?: No Referrals: Eliazar Burton MD [Primary Care Provider] - 1-2 days Decision to Admit Reason: Admit from EC Decision Date: 06/15/21 Decision Time: 13:54
[2021-06-15 12:41] LABS: Amphetamine Screen,Urine Not Detected (NotDetected); Barbiturate Screen,Urine Not Detected (NotDetected); Benzodiazepines Screen,Urine Not Detected (NotDetected); Cocaine Screen,Urine Not Detected (NotDetected); Methadone Screen, Urine Not Detected (NotDetected); Opiate Screen,Urine Not Detected (NotDetected); Oxycodone Screen, Urine Not Detected (NotDetected); Phencyclidine Screen,Urine Not Detected (NotDetected); Tricyclic Antidepressant,Urine Not Detected (NotDetected); Urn Cannabinoid Scrn Not Detected (NotDetected)
[2021-06-15] MEDS ORDERED: ZIPRASIDONE 20 MG VIAL IM PRN (14:58)
[2021-06-15] MEDS ORDERED: LORazepam 1 MG TAB PO PRN (14:58)
[2021-06-15] MEDS ORDERED: ACETAMINOPHEN TAB 325 MG TAB PO PRN (14:58)
[2021-06-15] MEDS ORDERED: MAGNESIUM HYDROXIDE 2,400 MG/10 ML CUP PO PRN (14:58)
[2021-06-15] MEDS ORDERED: MAG HYDROX/AL HYDROX/SIMETH 30 ML CUP PO PRN (14:58)
[2021-06-15] MEDS ORDERED: HALOPERIDOL LACTATE 5 MG/ML 1 ML VIAL IM PRN (14:59)
[2021-06-15] MEDS ORDERED: haloperidoL 5 MG TAB PO PRN (15:00)
[2021-06-15] MEDS ORDERED: LORazepam 2 MG/ML INJ IM PRN (15:00)
[2021-06-15 15:31] VITALS: BP 115/69; PULSE 89; RESP 18; TEMP 98.7
[2021-06-16 07:38] LABS: Basophils # (A) 0.1 k/uL (0-0.2); Basophils % (A) 1 %; Eosinophils # (A) 0.3 k/uL (0-0.7); Eosinophils % (A) 3 %; HCT 47.3 % (39.0-53.0); HGB 15.5 gm/dL (13.0-17.5); Lymphocytes # (A) 2.5 k/uL (1.0-4.8); Lymphocytes % (A) 26 %; MCH 29.9 pg (25.0-35.0); MCHC 32.8 g/dL (31.0-37.0); MCV 91.2 fL (80.0-100.0); Mean Platelet Volume 7.6; Monocytes # (A) 0.5 k/uL (0-1.0); Monocytes % (A) 5 %; Neutrophils # (A) 5.9 k/uL (1.3-7.7); Neutrophils % (A) 63 %; Platelet Count 291 k/uL (150-450); RBC 5.19 m/uL (4.30-5.90); RDW 14.3 % (11.5-15.5); WBC 9.4 k/uL (3.8-10.6)
[2021-06-16 07:53] LABS: ALT 34 U/L (4-49); AST 30 U/L (17-59); African American GFR (CKD) >90 (>60 ml/min/1.73 sqM); Albumin 4.3 g/dL (3.5-5.0); Alkaline Phosphatase 79 U/L (38-126); Anion Gap 9 mmol/L; Blood Urea Nitrogen 11 mg/dL (9-20); Calcium 9.7 mg/dL (8.4-10.2); Carbon Dioxide 26 mmol/L (22-30); Chloride 104 mmol/L (98-107); Glucose 95 mg/dL (74-99); Non-African American GFR(CKD) >90 (>60 ml/min/1.73 sqM); Potassium 4.4 mmol/L (3.5-5.1); Sodium 139 mmol/L (137-145); Total Bilirubin 0.7 mg/dL (0.2-1.3); Total Protein 7.2 g/dL (6.3-8.2)
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
== END 2021-06-16 12:58 | disposition home or self-care (01) | DRG 882 ==
LOC: EC 11:33 → 3MHU 14:44
PROVIDERS: ADMIT Psychiatry & Neurology Psychiatry; ATTEND Psychiatry & Neurology Psychiatry
DX: F43.22 Adjustment disorder with anxiety (principal); R45.851 Suicidal ideations; F31.9 Bipolar disorder, unspecified; F90.9 Attention-deficit hyperactivity disorder, unspecified type; K21.9 Gastro-esophageal reflux disease without esophagitis; R44.1 Visual hallucinations; F17.210 Nicotine dependence, cigarettes, uncomplicated; Z86.14 Personal history of Methicillin resistant Staphylococcus aureus infection; Z86.69 Personal history of other diseases of the nervous system and sense organs; Z87.828 Personal history of other (healed) physical injury and trauma; Z98.818 Other dental procedure status; Z62.810 Personal history of physical and sexual abuse in childhood; Z87.2 Personal history of diseases of the skin and subcutaneous tissue; Z98.890 Other specified postprocedural states; Z71.41 Alcohol abuse counseling and surveillance of alcoholic; Z71.51 Drug abuse counseling and surveillance of drug abuser; Z82.5 Family history of asthma and other chronic lower respiratory diseases; Z82.49 Family history of ischemic heart disease and other diseases of the circulatory system; Z83.3 Family history of diabetes mellitus; Z83.49 Family history of other endocrine, nutritional and metabolic diseases; Z82.61 Family history of arthritis; Z83.1 Family history of other infectious and parasitic diseases; Z82.0 Family history of epilepsy and other diseases of the nervous system; Z81.8 Family history of other mental and behavioral disorders
CPT/HCPCS: 80053; 80299; 80306; 82075; 85025; 99285